=== PATIENT | female | born 1965 | race Caucasian/White ===

== ENCOUNTER 2023-06-05 08:23 | Outpatient (OUT) | payer MEDICARE, BC, SELFPAY ==
--- NOTE | 2023-06-05 | MM_ITS ---
Patient: TARAH ADAME Exam Date: 06/05/2023 : 1965 Gender:F Ordering : DR Darin Gardner . Admission #: [id number] Family : Order #: [id number] CLICK HERE TO VIEW EXAM RADIOLOGY REPORT PROCEDURE: MM TOMOSYNTHESIS SCREENING BI COMPARISON: MG MAMM SCREEN 3D ROMA CAD, 06/01/2022. INDICATIONS: Screening Mammogram Calculator Name NCI Breast Cancer Risk Assessment Tool 5 Year Breast Cancer Risk 1.20% Lifetime Breast Cancer Risk 6.90% Personal Breast Cancer No Personal Ovarian Cancer No Treatments None Family Cancers Aunt-maternal with breast cancer at age 83. LOCATION: [facility] BREAST COMPOSITION: Scattered areas fibroglandular density. FINDINGS: DIAGNOSTIC CATEGORY 2--BENIGN FINDING. NO CHANGE FROM COMPARISON. Scattered benign-appearing calcifications are present. Scattered benign-appearing lymph nodes are present. RIGHT BREAST: No significant suspicious finding. LEFT BREAST: No significant suspicious finding. RECOMMENDATIONS: ROUTINE MAMMOGRAM AND CLINICAL EVALUATION IN 12 MONTHS. PLEASE NOTE: A NORMAL MAMMOGRAM DOES NOT EXCLUDE THE POSSIBILITY OF BREAST CANCER. A CLINICALLY SUSPICIOUS PALPABLE LUMP SHOULD BE BIOPSIED. Dictated by: Joshua Quinn MD on 06/05/2023 at 10:06 Approved by: Joshua Quinn MD on 06/05/2023 at 10:08
== END 2023-06-05 08:24 | disposition home or self-care (01) ==
LOC: MAMMO 08:23
PROVIDERS: PCP Family Medicine; Visit Provider Family Medicine
DX: Z12.31 Encounter for screening mammogram for malignant neoplasm of breast (principal); Z80.3 Family history of malignant neoplasm of breast
CPT/HCPCS: 77063; 77067

== ENCOUNTER 2023-10-29 12:40 | Emergency (ER) | payer MEDICARE, BC, SELFPAY ==
[2023-10-29 12:53] VITALS: BP 158/92; PULSE 88; RESP 18; TEMP 36.7; O2SAT 99; BMI 23.5
--- NOTE | 2023-10-29 13:11 | XR_ITS ---
The [address] [address] Patient Name: TARAH ADAME MRN: [id number] date: 1965 Sex: F Assigned Patient Location: ER Current Patient Location: ER Accession/Order Number: [id number] Exam Date: 10/29/2023 13:30 Report Date: 10/29/2023 14:24 At the request of: SUREKHA SANTOS Procedure: XR hand LT min 3V EXAM: XR hand LT min 3V HISTORY: Pain, fall COMPARISON: None. TECHNIQUE: 3 views of left hand FINDINGS: There is no acute fracture or dislocation. The soft tissues are unremarkable. XR/XR hand LT min 3V IMPRESSION: No acute fracture. Electronically authenticated by: SARATH ROMEO Date: 10/29/2023 14:24
--- NOTE | 2023-10-29 13:11 | XR_ITS ---
The [address] [address] Patient Name: TARAH ADAME MRN: [id number] date: 1965 Sex: F Assigned Patient Location: ER Current Patient Location: ER Accession/Order Number: [id number] Exam Date: 10/29/2023 13:30 Report Date: 10/29/2023 14:23 At the request of: SUREKHA SANTOS Procedure: XR elbow RT min 3V EXAM: XR elbow RT min 3V HISTORY: Pain, fall COMPARISON: None. TECHNIQUE: 2 views of right elbow FINDINGS: There is no acute fracture or dislocation. The soft tissues are unremarkable. 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 XR/XR elbow RT min 3V IMPRESSION: No acute fracture. Electronically authenticated by: SARATH ROMEO Date: 10/29/2023 14:23
--- NOTE | 2023-10-29 13:11 | XR_ITS ---
The [address] [address] Patient Name: TARAH ADAME MRN: [id number] date: 1965 Sex: F Assigned Patient Location: ER Current Patient Location: ER Accession/Order Number: [id number] Exam Date: 10/29/2023 13:30 Report Date: 10/29/2023 14:25 At the request of: SUREKHA SANTOS Procedure: XR shoulder RT min 2V EXAM: XR shoulder RT min 2V HISTORY: Pain, fall COMPARISON: None. TECHNIQUE: 3 views of the right shoulder. FINDINGS: Bones: No acute fracture or aggressive appearing bony lesion. Joints: Normal alignment. No effusion. No significant degenerative findings. Soft tissues: Unremarkable. XR/XR shoulder RT min 2V IMPRESSION: No evidence of fracture. Electronically authenticated by: SARATH ROMEO Date: 10/29/2023 14:25
--- NOTE | 2023-10-29 13:43 | ED_ITS ---
HPI - Extremity Injury (Upper) General Chief Complaint: Extremity Injury, Upper Stated Complaint: UPPER EXTREITY PAIN L HAND Time Seen by Provider: 10/29/23 13:07 Source: patient Mode of arrival: walk-in History of Present Illness HPI narrative: 58-year-old female presents for pain to her left hand, right elbow, and right shoulder. She states she fell about 2 days ago and injured these areas. She does not believe she hit her head. She is right-handed. The pain is moderate and worse when she moves. It is her hand that hurts the most. Related Data Previous Rx's Medication Instructions Recorded cephalexin 500 mg capsule 500 mg PO QID 10 days #40 caps 10/29/23 Allergies Allergy/AdvReac Type Severity Reaction Status Date / Time amoxicillin Allergy Severe Verified 10/29/23 12:58 Review of Systems ROS Narrative A ten point review of systems is negative except as noted above. Exam Narrative Exam Narrative: Nurses note and vital signs reviewed and patient is not hypoxic. General: The patient appears well and in no apparent distress. Patient is resting comfortably on cart. Skin: Warm, dry, no pallor noted. There is no rash noted. Head: Normocephalic, atraumatic Eye: Normal conjunctiva, no drainage Ears, Nose, Mouth, and Throat: oral mucosa is moist. Nares patent. Cardiovascular: Regular Rate and Rhythm Respiratory: Patient is in no distress, no accessory muscle use, lungs are clear to auscultation, no wheezing, rales or rhonchi Back: non-tender GI: Soft and nontender Musculoskeletal: Right shoulder has full range of motion with no bruise or abrasion. The right elbow has abrasions and some mild erythema but no drainage and the elbow has full range of motion. Right wrist and right hand are nontender. She has swelling on the dorsum of her left hand particularly at the base of the third finger. She also has some abrasions and bruises on her arms. Neurological: A&O, normal speech Psychiatric: Cooperative Constitutional Vital Signs, click to edit/add: Last Vital Signs Temp 98.1 F 10/29/23 12:53 Pulse 88 10/29/23 12:53 Resp 18 10/29/23 12:53 BP 158/92 H 10/29/23 12:53 Pulse Ox 99 10/29/23 12:53 O2 Del Method Room Air 10/29/23 12:53 Course Vital Signs Vital signs: Vital Signs Temperature 98.1 F 10/29/23 12:53 Pulse Rate 88 10/29/23 12:53 Respiratory Rate 18 10/29/23 12:53 Blood Pressure 158/92 H 10/29/23 12:53 Pulse Oximetry 99 10/29/23 12:53 Oxygen Delivery Method Room Air 10/29/23 12:53 Temperature 98.1 F 10/29/23 12:53 Pulse Rate 88 10/29/23 12:53 Respiratory Rate 18 10/29/23 12:53 Blood Pressure 158/92 H 10/29/23 12:53 Pulse Oximetry 99 10/29/23 12:53 Oxygen Delivery Method Room Air 10/29/23 12:53 MDM - Extremity Injury (Upper) MDM Narrative Medical decision making narrative: X-rays are all negative per radiologist. She has some erythema at the abrasions of the right elbow and she will be placed on a course of Keflex. Treatment d iagnosis and follow-up were discussed with the patient. Differential Diagnosis Differential diagnosis: Likely other (Fracture, abrasions, cellulitis) Imaging Data Left hand: Radiologist's impression: ITS Impressions Elbow X-Ray 10/29/23 13:11 IMPRESSION: No acute fracture. Electronically authenticated by: SARATH ROMEO Date: 10/29/2023 14:23 Hand X-Ray 10/29/23 13:11 IMPRESSION: No acute fracture. Electronically authenticated by: SARATH ROMEO Date: 10/29/2023 14:24 Shoulder X-Ray 10/29/23 13:11 IMPRESSION: No evidence of fracture. Electronically authenticated by: SARATH ROMEO Date: 10/29/2023 14:25 Discharge Plan Discharge Stand Alone Forms: Portal Instructions Chief Complaint: Extremity Injury, Upper Clinical Impression: Multiple contusions Patient Disposition: Home, Self-Care Time of Disposition Decision: 14:33 Condition: Good Mode of Transportation: Private Vehicle Prescriptions / Home Meds: New cephalexin 500 mg capsule 500 mg PO QID 10 Days Qty: 40 0RF Instructions: Contusion in Adults (ED) Referrals: Darin Gardner MD [Primary Care Provider] - 1 week
[2023-10-29 14:46] VITALS: BP 130/90; PULSE 77; RESP 16; O2SAT 99
== END 2023-10-29 14:50 | disposition home or self-care (01) ==
PROVIDERS: Emergency Provider Emergency Medicine; PCP Family Medicine
DX: T14.8XXA Other injury of unspecified body region, initial encounter (principal); W19.XXXA Unspecified fall, initial encounter
CPT/HCPCS: 73030; 73080; 73130; 99283

== ENCOUNTER 2024-05-09 08:08 | Outpatient (OUT) | payer MEDICARE, SELFPAY ==
--- OUTSIDE RECORDS SUMMARY | 2024-05-09 08:13 | XMS_ITS | CCD ---
Author Organization [facility] Care Team Providers Care Healthcare Economics Consultant Name Role Phone LETY, DR MOSQUEDA Consulting Unavailable OSEIY, DR MOSQUEDA Primary Care Unavailable HOY, DR MOSQUEDA Admitting Unavailable HOY, DR MOSQUEDA Attending Unavailable WEST, DR CARLO Willson Consulting Unavailable OSEIY, DR MOSQUEDA Consulting Unavailable OSEIY, DR MOSQUEDA Primary Care Unavailable HOY, DR MOSQUEDA Admitting Unavailable HOY, DR MOSQUEDA Attending Unavailable ZIEBER, DR GEOFF Bella Consulting Unavailable OSEIY, DR MOSQUEDA Consulting Unavailable OSEIY, DR MOSQUEDA Primary Care Unavailable HOY, DR MOSQUEDA Admitting Unavailable HOY, DR MOSQUEDA Attending Unavailable HOY, DR MOSQUEDA Consulting Unavailable HOY, DR MOSQUEDA Primary Care Unavailable HOY, DR MOSQUEDA Admitting Unavailable HOY, DR MOSQUEDA Attending Unavailable ZIEBER, DR GEOFF Bella Consulting Unavailable Allergies Allergy Classification Reported Allergen(s) Allergy Type Date of Onset Reaction(s) Facility (1 source) Amoxicillin Drug Allergy 08-18-2016 [facility] (1 source) Codeine Drug Allergy 02-17-2016 [facility] (1 source) Morphine Drug Allergy 08-18-2016 [facility] Problems Problem Classification Problem Date Documented Da te Episodic/Chronic Deficiency and other anemia (1 source) Anemia, unspecified; Translations: [ANEMIA UNSPECIFIED] Onset: 06-02-2022 Episodic Diabetes mellitus without complication (1 source) Other abnormal glucose; Translations: [OTHER ABNORMAL GLUCOSE] Onset: 06-02-2022 Episodic Disorders of lipid metabolism (1 source) Hyperlipidemia, unspecified; Translations: [HYPERLIPIDEMIA UNSPECIFIED] Onset: 06-02-2022 Chronic Malaise and fatigue (1 source) Other fatigue; Translations: [OTHER FATIGUE] Onset: 06-02-2022 Episodic Other aftercare (1 source) Other usp (current) drug therapy; Translations: [OTH CUSTODIAN BLOOD BANK CURRENT DRUG THERAPY] Onset: 06-02-2022 Episodic Other screening for suspected conditions (not mental disorders or infectious disease) (4 sources) Encounter for screening mammogram for malignant neoplasm of breast; Translations: [ENC SCR MAMMO MALIG NEOPLASM BREAST] Onset: 06-01-2022 Episodic Residual codes; unclassified (1 source) Family history of malignant neoplasm of breast; Translations: [FAMILY HX MALIG NEOPLASM OF BREAST] Onset: 06-03-2022 Episodic Spondylosis; intervertebral disc disorders; other back problems (4 sources) Spondylosis without myelopathy or radiculopathy, lumbar region; Translations: [SPONDYLS W/O MYELO-/RADICULOP LUMB] Onset: 09-09-2021 Chronic Substance-related disorders (4 sources) Nicotine dependence, cigarettes, uncomplicated; Translations: [NICOTINE DEPEND CIGARETTES UNCOMP] Onset: 06-06-2022 Chronic Results Test Name Value Interpretation Reference Range Facil ity CT LUNG CANCER SCREENINGon 1 CT LUNG CANCER SCREENING EXAMINATION: CT LUNG CANCER SCREENING HISTORY: Tobacco dependence caused by cigarettes COMPARISON: None. TECHNIQUE: Axial, Coronal, and Sagittal images were created without the administration of IV contrast material. Dose reduction techniques were achieved by using automated exposure control and/or adjustment of mA and/or kV according to patient size and/or use of iterative reconstruction technique. FINDINGS: LUNGS: No visible pulmonary disease. PLEURA: No mass, effusion, or pneumothorax. VASCULATURE: No abnormality. GREGORY: No mass or pathologic adenopathy. MEDIASTINUM: No mass or pathologic adenopathy. CARDIAC: No enlargement, pericardial thickening, or significant calcification. AORTA: No aneurysm or dissection. CHEST WALL: No mass or axillary adenopathy BONES: No bone lesion or fracture. LIMITED ABDOMEN: No suspicious findings. Limited images of the upper abdomen. OTHER: Negative. IMPRESSION: 1. Lung-RADS Category 1 Negative. No nodules and definitely benign nodules. Continue annual screening with LDCT in 12 months. Electronically authenticated by: GEOFF ANDRADE Date: 2022-06-06 22:04 Normal [facility] MG MAMM SCREEN 3D ROMA CADon 06-01-2022 MG MAMM SCREEN 3D ROMA CAD Patient: TARAH ADAME Exam Date: 06/01/2022 : 1965 Gender:F Ordering : DR PANDA DAVIDSON . Admission #: [id number] Family : Order #: [id number] CLICK HERE TO VIEW EXAM RADIOLOGY REPORT PROCEDURE: MAMMOGRAM SCREENING 3D BILATERAL CAD COMPARISON: MAMMO ROMA LUIS DIG, 11/04/2010. INDICATIONS: Screening mammography Calculator Name NCI Breast Cancer Risk Assessment Tool 5 Year Breast Cancer Risk 1.10% Lifetime Breast Cancer Risk 7.10% Personal Breast Cancer No Personal Ovarian Cancer No Treatments None Family Cancers Aunt-maternal with breast cancer at age 83. LOCATION: [facility] BREAST COMPOSITION: Scattered areas fibroglandular density. FINDINGS: DIAGNOSTIC CATEGORY 2--BENIGN FINDING: Scattered benign-appearing calcifications are present. Scattered benign-appearing lymph nodes are present. RIGHT BREAST: No significant suspicious finding. Increased number of multiple calcified cysts benign appearing. LEFT BREAST: No significant suspicious finding. RECOMMENDATIONS: ROUTINE MAMMOGRAM AND CLINICAL EVALUATION IN 12 MONTHS. PLEASE NOTE: A NORMAL MAMMOGRAM DOES NOT EXCLUDE THE POSSIBILITY OF BREAST CANCER. A CLINICALLY SUSPICIOUS PALPABLE LUMP SHOULD BE BIOPSIED. Dictated by: Carlo Quinn MD on 06/01/2022 at 09:57 Approved by: Carlo Quinn MD on 06/01/2022 at 09:59 Normal [facility] CBC AUTO DIFFon 05-30-2022 BASO # 0.1 103/ul Normal 0.0-0.1 [facility] Comment on above: Performed By: #### C BC #### [facility] [address] [address] [address] Liang Diana Basophils/100 WBC (Bld) 0.8 % Normal 0.2-2.0 [facility] Comment on above: Performed By: #### C BC #### [facility] [address] [address] [address] Liang Diana EO # 0.3 103/ul Normal 0.0-0.7 [facility] Comment on above: Performed By: #### C BC #### [facility] [address] [address] [address] Liang Diana Eosinophils/100 WBC (Bld) 2.4 % Normal 0.9-7.0 [facility] Comment on above: Performed By: #### C BC #### [facility] [address] [place] [address] Dr. Liang Diana Erythrocyte distribution width (RBC) [Ratio] 13.5 % Normal 11.0-15.0 [facility] Comment on above: Performed By: #### C BC #### [facility] [address] [place] [address] Dr. Liang Diana Hematocrit (Bld) [Volume fraction] 43.1 % Normal 36.0-48.0 [facility] Comment on above: Performed By: #### C BC #### [facility] [address] [place] [address] Dr. Liang Diana Hemoglobin (Bld) [Mass/Vol] 14.3 g/dL Normal 12.0-16.0 [facility] Comment on above: Performed By: #### C BC #### [facility] [address] [place] [address] Dr. Liang Diana IG # 0.14 10e3/ul Critically high 0.00-0.03 [facility] Comment on above: Performed By: #### C BC #### [facility] [address] [place] [address] Dr. Liang Diana IG % 1.2 % Critically high 0.0-0.5 [facility] Comment on above: Performed By: #### C BC #### [facility] [address] [place] [address] Dr. Liang Diana LYMPH # 1.6 103/ul Normal 1.2-3.8 [facility] Comment on above: Performed By: #### C BC #### [facility] [address] [place] [address] Dr. Liang Diana Lymphocytes/100 WBC (Bld) 14.3 % Critically low 20.5-60.0 [facility] Comment on above: Performed By: #### C BC #### [facility] [address] [place] [address] Dr. Liang Diana MANUAL DIFF REQ NO Normal [facility] Comment on above: Performed By: #### C BC #### [facility] [address] [place] [address] Dr. Liang Diana MCH (RBC) [Entitic mass] 32.1 pg Normal 26.7-34.0 [facility] Comment on above: Performed By: #### C BC #### [facility] [address] [place] [address] Dr. Liang Diana MCHC (RBC) [Mass/Vol] 33.2 g/dL Normal 29.9-35.2 [facility] Comment on above: Performed By: #### C BC #### [facility] [address] [address] [address] Liang Diana MCV (RBC) [Entitic vol] 96.6 fL Normal 81.0-99.0 [facility] Comment on above: Performed By: #### C BC #### [facility] [address] [place] [address] Dr. Liang Diana MONO # 1.1 103/ul Critically high 0.3-0.8 [facility] Comment on above: Performed By: #### C BC #### [facility] [address] [place] [address] Dr. Liang Diana Monocytes/100 WBC (Bld) 10.1 % Normal 1.7-12.0 [facility] Comment on above: Performed By: #### C BC #### [facility] [address] [place] [address] Dr. Liang Diana NEUT # 8.0 103/ul Critically high 1.4-6.5 [facility] Comment on above: Performed By: #### C BC #### [facility] [address] [place] [address] Dr. Liang Diana Neutrophils/100 WBC (Bld) 71.2 % Normal 43.0-75.0 [facility] Comment on above: Performed By: #### C BC #### [facility] [address] [place] [address] Dr. Liang Diana Platelet mean volume (Bld) [Entitic vol] 9.0 fL Critically low 9.5-13.5 [facility] Comment on above: Performed By: #### C BC #### [facility] [address] [address] [address] Liang Diana PLT 258 103/ul Normal 150-450 [facility] Comment on above: Performed By: #### C BC #### [facility] [address] [place] [address] Dr. Liang Diana RBC 4.46 106/ul Normal 4.20-5.40 [facility] Comment on above: Performed By: #### C BC #### [facility] [address] [place] [address] Dr. Liang Diana WBC 11.3 103/ul Critically high 4.0-11.0 [facility] Comment on above: Performed By: #### C BC #### [facility] [address] [place] [address] Dr. Liang Diana FREE THYROXINE INDEX T7on FTI 4.48 Normal 1.30-4.50 [facility] Comment on above: Performed By: #### L IPID, TSH, CMP, T7 #### [facility] [address] [place] [address] Dr. Liang Diana T3U 37.0 % Normal 30.0-39.0 [facility] Comment on above: Performed By: #### L IPID, TSH, CMP, T7 #### [facility] [address] [place] [address] Dr. Liang Diana T4 [Mass/Vol] 12.10 ug/dL Normal 4.80-13.90 [facility] Comment on above: Performed By: #### L IPID, TSH, CMP, T7 #### [facility] [address] [place] [address] Dr. Liang Diana GLYCOHEMOGLOBIN A1Con 2021 ADA RECOMMENDATION SEE BELOW Normal [facility] Comment on above: Result Comment: ADA RECOMMENDED LIMIT 4.0 - 6.0 ADA THERAPEUTIC TARGET < 7.0 ACTION SUGGESTED > 7.0 Performed By: #### A 1C #### [facility] [address] [place] [address] Dr. Liang Diana Glucose [Mass/Vol] 108 mg/dL Normal [facility] Comment on above: Performed By: #### A 1C #### [facility] [address] [address] [address] Liang Diana HbA1c (Bld) [Mass fraction] 5.4 % Normal 4.5-6.2 [facility] Comment on above: Performed By: #### A 1C #### [facility] [address] [address] [address] Liang Diana LIPID PROFILEon 05-30-2022 CHOL-HDL RATIO NORM SEE BELOW Normal [facility] Comment on above: Result Comment: 3.3 - 4.4 LOW RISK 4.4 - 7.1 AVERAGE RISK 7.1 - 11.0 MODERATE RISK >11.0 HIGH RISK Performed By: #### L IPID, TSH, CMP, T7 #### [facility] [address] [address] [address] Liang Diana Cholesterol [Mass/Vol] 219 mg/dL Critically high <=200 [facility] Comment on above: Performed By: #### L IPID, TSH, CMP, T7 #### [facility] [address] [address] [address] Liang Diana Cholesterol in HDL [Mass/Vol] 69 mg/dL Critically high 40-60 [facility] Comment on above: Performed By: #### L IPID, TSH, CMP, T7 #### [facility] [address] [address] [address] Liang Diana Cholesterol in LDL [Mass/Vol] 134.4 mg/dL Normal [facility] Comment on above: Performed By: #### L IPID, TSH, CMP, T7 #### [facility] [address] [address] [address] Liang Diana Cholesterol.total/Cho lesterol in HDL [Mass ratio] 3.2 {ratio} Normal [facility] Comment on above: Performed By: #### L IPID, TSH, CMP, T7 #### [facility] [address] [address] [address] Liang Diana HDL NORMAL > or = 60 mg/dl - LOW CARDIOVASCULAR RISK <40 mg/dl - HIGH CARDIOVASCULAR RISK Normal [facility] Comment on above: Performed By: #### L IPID, TSH, CMP, T7 #### [facility] [address] [address] [address] Liang Diana LDL CALC NORMAL SEE BELOW Normal [facility] Comment on above: Result Comment: <100 mg/dl OPTIMAL 100 - 129 mg/dl NEAR OR ABOVE OPTIMAL 130 - 159 mg/dl BORDERLINE HIGH 160 - 189 mg/dl HIGH >190 mg/dl VERY HIGH Performed By: #### L IPID, TSH, CMP, T7 #### [facility] [address] [address] [address] Liang Diana Triglyceride [Mass/Vol] 78 mg/dL Normal <=150 [facility] Comment on above: Performed By: #### L IPID, TSH, CMP, T7 #### [facility] [address] [address] [address] Liang Diana VLDL CALC 15.6 mg/dL Normal [facility] Comment on above: Performed By: #### L IPID, TSH, CMP, T7 #### [facility] [address] [address] [address] Liang Diana PROF 14(COMP METB)on 022 Albumin [Mass/Vol] 4.0 g/dL Normal 3.4-5.0 [facility] Comment on above: Performed By: #### L IPID, TSH, CMP, T7 #### [facility] [address] [address] [address] Liang Diana Albumin/Globulin [Mass ratio] 1.2 {ratio} Normal [facility] Comment on above: Performed By: #### L IPID, TSH, CMP, T7 #### [facility] [address] [address] [address] Liang Diana ALP [Catalytic activity/Vol] 66 U/L Normal 46-116 [facility] Comment on above: Performed By: #### L IPID, TSH, CMP, T7 #### [facility] [address] [address] [address] Liang Diana ALT [Catalytic activity/Vol] 21 U/L Normal 14-59 [facility] Comment on above: Performed By: #### L IPID, TSH, CMP, T7 #### [facility] [address] [address] [address] Liang Diana Anion gap [Moles/Vol] 11.1 mmol/L Normal [facility] Comment on above: Performed By: #### L IPID, TSH, CMP, T7 #### [facility] [address] [address] [address] Liang Diana AST [Catalytic activity/Vol] 18 U/L Normal 15-37 [facility] Comment on above: Performed By: #### L IPID, TSH, CMP, T7 #### [facility] [address] [address] [address] Liang Diana Bilirubin [Mass/Vol] 0.6 mg/dL Normal 0.2-1.0 [facility] Comment on above: Performed By: #### L IPID, TSH, CMP, T7 #### [facility] [address] [place] [address] Dr. Liang Diana Calcium [Mass/Vol] 9.2 mg/dL Normal 8.5-10.1 [facility] Comment on above: Performed By: #### L IPID, TSH, CMP, T7 #### [facility] [address] [address] [address] Liang Diana Chloride [Moles/Vol] 104 mmol/L Normal 98-107 [facility] Comment on above: Performed By: #### L IPID, TSH, CMP, T7 #### [facility] [address] [address] [address] Liang Diana CO2 [Moles/Vol] 29.5 mmol/L Normal 21.0-32.0 [facility] Comment on above: Performed By: #### L IPID, TSH, CMP, T7 #### [facility] [address] [place] [address] Dr. Liang Diana Creatinine [Mass/Vol] 0.68 mg/dL Normal 0.55-1.02 [facility] Comment on above: Performed By: #### L IPID, TSH, CMP, T7 #### [facility] [address] [address] [address] Liang Diana EGFR-AF TURKS AND CAICOS ISLANDER >60 Normal >=60 [facility] Comment on above: Performed By: #### L IPID, TSH, CMP, T7 #### [facility] [address] [address] [address] Liang Diana EGFR-NON AF TURKS AND CAICOS ISLANDER >60 Normal >=60 [facility] Comment on above: Performed By: #### L IPID, TSH, CMP, T7 #### [facility] [address] [address] [address] Liang Diana Globulin (S) [Mass/Vol] 3.3 g/dL Normal [facility] Comment on above: Performed By: #### L IPID, TSH, CMP, T7 #### [facility] [address] [address] [address] Liang Diana Glucose [Mass/Vol] 96 mg/dL Normal 74-106 [facility] Comment on above: Performed By: #### L IPID, TSH, CMP, T7 #### [facility] [address] [address] [address] Liang Diana Potassium [Moles/Vol] 4.6 mmol/L Normal 3.5-5.1 [facility] Comment on above: Performed By: #### L IPID, TSH, CMP, T7 #### [facility] [address] [address] [address] Liang Diana Protein [Mass/Vol] 7.3 g/dL Normal 6.4-8.2 [facility] Comment on above: Performed By: #### L IPID, TSH, CMP, T7 #### [facility] [address] [address] [address] Liang Diana Sodium [Moles/Vol] 140 mmol/L Normal 136-145 [facility] Comment on above: Performed By: #### L IPID, TSH, CMP, T7 #### [facility] [address] [address] [address] Liang Diana Urea nitrogen [Mass/Vol] 7.0 mg/dL Normal 7.0-18.0 [facility] Comment on above: Performed By: #### L IPID, TSH, CMP, T7 #### [facility] [address] [address] [address] Liang Diana Urea nitrogen/Creatinine [Mass ratio] 10.3 mg/mg Normal [facility] Comment on above: Performed By: #### L IPID, TSH, CMP, T7 #### [facility] [address] [address] [address] Laing Diana TSHon 05-30-2022 TSH 0.872 uIU/mL Normal 0.358-3.740 [facility] Comment on above: Performed By: #### L IPID, TSH, CMP, T7 #### [facility] [address] [address] [address] Liang Diana XR LSPINE MIN 4 VIEWSon 08-22 XR LSPINE MIN 4 VIEWS EXAMINATION: XR LSPINE MIN 4 VIEWS HISTORY: Spondylosis without myelopathy COMPARISON: XR lumbar spine 10/03/2020 FINDINGS: BONES: 10 mm retrolisthesis of L2 on 3 (previously 3 mm). Posterior mechanical stabilization of L3-4-5 via bilateral pedicle screws and rods without evidence of hardware fracture. Posterior decompression L3 and L4 Mild inferior endplate compression fracture of L2 versus chronic degenerative endplate changes. Moderate degenerative facet arthropathy L4-5, L5-S1. Moderate levoscoliosis of the lumbar spine. DISC SPACES: Marked narrowing L2-3 through L4-5. Mild narrowing L5-S1. PARASPINOUS: Negative. No paraspinous abnormality is seen. OTHER: Negative. IMPRESSION: 1. Since one year ago there is been interval progression of retrograde listhesis of L2 on 3, now grade 2, likely causing marked central canal and moderate-marked foramen narrowing. L2 progression of the inferior endplate degenerative changes versus mild compression fracture. 2. Prior surgical changes at L3-L5 without evidence of hardware failure or change in alignment. 3. Stable multilevel marked degenerative disc disease and moderate levoscoliosis. Electronically authenticated by: GOEFF ANDRADE Date: 2021-09-09 11:23 Normal [facility] Encounters Encounter Date Encounter Type Care Provider Facility Start: 06-06-2022 End: 10-18-[address] PANDA DAVIDSON Facility[facility] Start: 06-02-2022 Encounter for genera l adult medical examination without abnormal findings DR PANDA DAVIDSON [facility] Start: 06-01-2022 End: 06-02-[address] PANDA DAVIDSON Facility[facility] Start: 05-30-2022 End: 05-31-[address] PANDA DAVIDSON Facility[facility] Start: 05-30-2022 End: 05-31-2022 Encounter for general adult medical examination without abnormal findings DR PANDA DAVIDSON Facility[facility] Start: 09-09-2021 End: 09-10-[address] PANDA DAVIDSON Facility[facility] Payers Date Payer Category Payer Unknown [id number] 2.16.84 [id number] 1965 Unknown [id number] 2.16.84 [id number] 1965 Unknown [id number] 2.16.84 [id number] 1965 Unknown [id number] 2.16.84 [id number] 1959 Medicare [id number] 1959 Unknown [id number] Summary Purpose Family History No Family History Records Found Advance Directives No Advanced Directives Records Found Additional Source Comments INFORMATION SOURCE (unrecogn ized section and content) DATE CREATED AUTHOR 06/22/2022 [facility] FOR RECORDS PERTAINING TO PATIENTS WHO ARE OR HAVE BEEN ENROLLED IN A CHEMICAL DEPENDENCY/SUBSTANCEABUSE PROGRAM, SOME INFORMATION MAY BE OMITTED. This clinical summary was aggregated from multiple sources. Caution should be exercised in using it in the provision of clinical care. This summary normalizes information from multiple sources, and as a consequence, information in this document may materially change the coding, format and clinical context of patient data. In addition, data may be omitted in some cases. CLINICAL DECISIONS SHOULD BE BASED ON THE PRIMARY CLINICAL RECORDS. [facility] [employer] [facility]. provides no warranty or guarantee of the accuracy or completeness of information in this document.
[2024-05-09 08:44] LABS: Basophils Absolute Auto 0.1 10^3/uL (0.0-0.1); Basophils Percent Auto 0.4 % (0.2-2.0); Eosinophils Absolute Auto 0.1 10^3/uL (0.0-0.7); Eosinophils Percent Auto 0.8 % (0.9-7.0); Estimated Average Glucose 108 mg/dL; Glycohemoglobin A1C 5.4 % (4.5-6.2); Hematocrit 41.7 % (36.0-48.0); Hemoglobin 13.8 g/dL (12.0-16.0); Immature Granulocytes Abs Auto 0.14 10^3/uL (0.00-0.03); Immature Granulocytes Pct Auto 1.2 % (0.0-0.5); Lymphocytes Absolute Auto 1.2 10^3/uL (1.2-3.8); Mean Corpuscular HGB Conc 33.1 g/dL (29.9-35.2); Mean Corpuscular Hemoglobin 31.9 pg (26.7-34.0); Mean Corpuscular Volume 96.3 fL (81.0-99.0); Mean Platelet Volume 9.2 fL (9.5-13.5); Monocytes Absolute Auto 0.8 10^3/uL (0.3-0.8); Monocytes Percent Auto 7.4 % (1.7-12.0); Neutrophils Absolute Auto 8.9 10^3/uL (1.4-6.5); Neutrophils Percent Auto 79.2 % (43.0-75.0); Platelet Count 271 10^3/uL (150-450); Red Blood Count 4.33 10^6/uL (4.20-5.40); Red Cell Distribution Width 13.8 % (11.0-15.0); White Blood Count 11.3 10^3/uL (4.0-11.0)
[2024-05-09 09:10] LABS: Alanine Aminotransferase 27 U/L (14-59); Albumin Globulin Ratio 1.2; Albumin Level 3.7 g/dL (3.4-5.0); Alkaline Phosphatase 67 U/L (46-116); Anion Gap 9.1; Aspartate Amino Transferase 20 U/L (15-37); Bilirubin Total 0.5 mg/dL (0.2-1.0); Calcium 8.9 mg/dL (8.5-10.1); Carbon Dioxide 30.9 mmol/L (21.0-32.0); Chloride 105 mmol/L (98-107); Chol HDL Ratio 2.7; Cholesterol 232 mg/dL (<=200); Estimated GFR (African America >60 (>=60); Estimated GFR (Non-African Ame >60 (>=60); Free T3 1.82 pg/mL (2.18-3.98); Glucose 93 mg/dL (74-106); HDL Cholesterol 85 mg/dL (40-60); Sodium 141 mmol/L (136-145); Thyroid Stimulating Hormone 0.487 uIU/mL (0.358-3.740); Total Protein 6.7 g/dL (6.4-8.2); Triglycerides 56 mg/dL (<=150); VLDL CHOLESTEROL 11.2 mg/dL
== END 2024-05-09 08:09 | disposition home or self-care (01) ==
LOC: LAB 08:09
PROVIDERS: PCP Family Medicine; Visit Provider Family Medicine
DX: Z00.00 Encounter for general adult medical examination without abnormal findings (principal); E78.5 Hyperlipidemia, unspecified; R73.09 Other abnormal glucose; D64.9 Anemia, unspecified; E03.9 Hypothyroidism, unspecified
CPT/HCPCS: 36415; 80053; 80061; 83036; 83540; 84436; 84443; 84481; 85025

== ENCOUNTER 2024-05-16 08:16 | Outpatient (OUT) | payer MEDICARE, SELFPAY ==
--- NOTE | 2024-05-16 08:23 | CT_ITS ---
[address] [address] Patient Name: TARAH ADAME MRN: [id number] date: 1965 Sex: F Assigned Patient Location: CT Current Patient Location: Accession/Order Number: [id number] Exam Date: 05/16/2024 08:25 Report Date: 05/17/2024 06:55 At the request of: PANDA DAVIDSON Procedure: CT lung screening low-dose EXAMINATION: CT lung screening low-dose HISTORY: Cigarette Smoker, Chronic Pulmonary Obstructive Disease COMPARISON: CT lung cancer screening 06/06/2022 TECHNIQUE: Axial, Coronal, and Sagittal images were created without the administration of IV contrast material. Dose reduction techniques were achieved by using automated exposure control and/or adjustment of mA and/or kV according to patient size and/or use of iterative reconstruction technique. FINDINGS: LUNGS: No visible pulmonary disease. PLEURA: No mass, effusion, or pneumothorax. VASCULATURE: No abnormality. GREGORY: No mass or pathologic adenopathy. MEDIASTINUM: No mass or pathologic adenopathy. CARDIAC: No enlargement, pericardial thickening, or pericardial effusion. Coronary Artery calcifications: AORTA: No aneurysm or dissection. CHEST WALL: No mass or axillary adenopathy BONES: Mechanical fusion of lower cervical spine. No bone lesion or fracture. LIMITED ABDOMEN: No suspicious findings. Limited images of the upper abdomen. OTHER: Negative. CT/CT lung screening low-dose IMPRESSION: 1. Lung-RADS Category 1 Negative. No nodules and definitely benign nodules. Continue annual screening with LDCT in 12 months. Electronically authenticated by: GEOFF ANDRADE Date: 05/17/2024 06:55
--- OUTSIDE RECORDS SUMMARY | 2024-05-16 08:31 | XMS_ITS | CCD ---
Author Organization [facility] Care Team Providers Care Client Service Associate Name Role Phone LETY, DR MOSQUEDA Consulting Unavailable OSEIY, DR MOSQUEDA Primary Care Unavailable HOY, DR MOSQUEDA Admitting Unavailable HOY, DR MOSQUEDA Attending Unavailable WEST, DR CARLO iWllson Consulting Unavailable OSEIY, DR MOSQUEDA Consulting Unavailable [...] (1 source) Amoxicillin Drug Allergy 08-18-2016 [facility] Repository (1 source) Codeine Drug Allergy 02-17-2016 [facility] Rep[facility] (1 source) Morphine Drug Allergy 08-18-2016 [facility] Repository Problems Problem Classification Problem Date Documented [...] 06-02-2022 Episodic Other aftercare (1 source) Other assisted (current) drug therapy; 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 Admission #: [id number] Family : Order #: [id number] CLICK HERE TO VIEW EXAM RADIOLOGY REPORT PROCEDURE: MAMMOGRAM SCREENING 3D BILATERAL CAD COMPARISON: MAMMO ROMA LUIS DIG, 11/04/2010. INDICATIONS: Screening mammography Calculator Name NCI Breast Cancer Risk Assessment Tool 5 Year Breast Cancer Risk 1.10% Lifetime Breast Cancer Risk 7.10% Personal Breast Cancer No Personal Ovarian Cancer No Treatments None Family Cancers Aunt-maternal with breast cancer at age 83. LOCATION: [facility] BREAST COMPOSITION: Scattered areas fibroglandular density. FINDINGS: [...] MD on 06/01/2022 at 09:59 Normal [facility] CBC AUTO DIFFon 05-30-2022 BASO # 0.1 103/ul Normal 0.0-0.1 [facility] Comment on above: Performed By: #### C BC #### [facility] [address] [address] [address] iLang Diana Basophils/100 WBC (Bld) 0.8 % Normal 0.2-2.0 [facility] Comment on above: Performed By: #### C BC #### [facility] [address] [address] [address] Liang Diana EO # 0.3 103/ul Normal 0.0-0.7 [facility] Comment on above: Performed By: #### C BC #### [facility] [address] [address] [address] Liang Diana Eosinophils/100 WBC (Bld) 2.4 % Normal 0.9-7.0 [facility] Comment on above: Performed By: #### C BC #### [facility] [address] [place] [address] Dr. Liang Diana Erythrocyte distribution width (RBC) [Ratio] 13.5 % Normal 11.0-15.0 [facility] Comment on above: Performed By: #### C BC #### [facility] [address] [place] [address] Dr. Liang Diana Hematocrit (Bld) [Volume fraction] 43.1 % Normal 36.0-48.0 [facility] Comment on above: Performed By: #### C BC #### [facility] [address] [place] [address] Dr. Liang iDana Hemoglobin (Bld) [Mass/Vol] 14.3 g/dL Normal 12.0-16.0 [facility] Comment on above: Performed By: #### C BC #### [facility] [address] [place] [address] Dr. Liang Diana IG # 0.14 10e3/ul Critically high 0.00-0.03 [facility] Comment on above: Performed By: #### C BC #### [facility] [address] [place] [address] Dr. Liang Diana IG % 1.2 % Critically high 0.0-0.5 [facility] Comment on above: Performed By: #### C BC #### [facility] [address] [place] [address] Dr. Liang Diana LYMPH # 1.6 103/ul Normal 1.2-3.8 [facility] Comment on above: Performed By: #### C BC #### [facility] [address] [place] [address] Dr. Liang Diana Lymphocytes/100 WBC (Bld) 14.3 % Critically low 20.5-60.0 [facility] Comment on above: Performed By: #### C BC #### [facility] [address] [place] [address] Dr. Liang Diana MANUAL DIFF REQ NO Normal [facility] Comment on above: Performed By: #### C BC #### [facility] [address] [place] [address] Dr. Liang Diana MCH (RBC) [Entitic mass] 32.1 pg Normal 26.7-34.0 [facility] Comment on above: Performed By: #### C BC #### [facility] [address] [place] [address] Dr. Liang Diana MCHC (RBC) [Mass/Vol] 33.2 g/dL Normal 29.9-35.2 [facility] Comment on above: Performed By: #### C BC #### [facility] [address] [address] [address] Liang Diana MCV (RBC) [Entitic vol] 96.6 fL Normal 81.0-99.0 [facility] Comment on above: Performed By: #### C BC #### [facility] [address] [place] [address] Dr. Liang Diana MONO # 1.1 103/ul Critically high 0.3-0.8 [facility] Comment on above: Performed By: #### C BC #### [facility] [address] [place] [address] Dr. Liang Diana Monocytes/100 WBC (Bld) 10.1 % Normal 1.7-12.0 [facility] Comment on above: Performed By: #### C BC #### [facility] [address] [place] [address] Dr. Liang Diana NEUT # 8.0 103/ul Critically high 1.4-6.5 [facility] Comment on above: Performed By: #### C BC #### [facility] [address] [place] [address] Dr. Liang Diana Neutrophils/100 WBC (Bld) 71.2 % Normal 43.0-75.0 [facility] Comment on above: Performed By: #### C BC #### [facility] [address] [place] [address] Dr. Liang Diana Platelet mean volume (Bld) [Entitic vol] 9.0 fL Critically low 9.5-13.5 [facility] Comment on above: Performed By: #### C BC #### [facility] [address] [address] [address] Liang Diana PLT 258 103/ul Normal 150-450 [facility] Comment on above: Performed By: #### C BC #### [facility] [address] [place] [address] Dr. Liang Diana RBC 4.46 106/ul Normal 4.20-5.40 [facility] Comment on above: Performed By: #### C BC #### [facility] [address] [place] [address] Dr. Liang Diana WBC 11.3 103/ul Critically high 4.0-11.0 [facility] Comment on above: Performed By: #### C BC #### [facility] [address] [place] [address] Dr. Liang Diana FREE THYROXINE INDEX T7on FTI 4.48 Normal 1.30-4.50 [facility] Comment on above: Performed By: #### L IPID, TSH, CMP, T7 #### [facility] [address] [place] [address] Dr. Liang Diana T3U 37.0 % Normal 30.0-39.0 [facility] Comment on above: Performed By: #### L IPID, TSH, CMP, T7 #### [facility] [address] [place] [address] Dr. Liang Diana T4 [Mass/Vol] 12.10 ug/dL Normal 4.80-13.90 [facility] Comment on above: Performed By: #### L IPID, TSH, CMP, T7 #### [facility] [address] [place] [address] Dr. Liang Diaan GLYCOHEMOGLOBIN A1Con 2021 ADA RECOMMENDATION SEE BELOW Normal [facility] Comment on above: Result Comment: ADA RECOMMENDED LIMIT 4.0 - 6.0 ADA THERAPEUTIC TARGET < 7.0 ACTION SUGGESTED > 7.0 Performed By: #### A 1C #### [facility] [address] [place] [address] Dr. Liang Diana Glucose [Mass/Vol] 108 mg/dL Normal [facility] Comment on above: Performed By: #### A 1C #### [facility] [address] [address] [address] Liang Diana HbA1c (Bld) [Mass fraction] 5.4 % Normal 4.5-6.2 [facility] Comment on above: Performed By: #### A 1C #### [facility] [address] [address] [address] Liang Diana LIPID PROFILEon 05-30-2022 CHOL-HDL RATIO NORM SEE BELOW Normal [facility] Comment on above: Result Comment: 3.3 - 4.4 LOW RISK 4.4 - 7.1 AVERAGE RISK 7.1 - 11.0 MODERATE RISK >11.0 HIGH RISK Performed By: #### L IPID, TSH, CMP, T7 #### [facility] [address] [address] [address] Liang Diana Cholesterol [Mass/Vol] 219 mg/dL Critically high <=200 [facility] Comment on above: Performed By: #### L IPID, TSH, CMP, T7 #### [facility] [address] [address] [address] Liang Diana Cholesterol in HDL [Mass/Vol] 69 mg/dL Critically high 40-60 [facility] Comment on above: Performed By: #### L IPID, TSH, CMP, T7 #### [facility] [address] [address] [address] Liang Diana Cholesterol in LDL [Mass/Vol] 134.4 mg/dL Normal [facility] Comment on above: Performed By: #### L IPID, TSH, CMP, T7 #### [facility] [address] [address] [address] Liang Diana Cholesterol.total/Cho lesterol in HDL [Mass ratio] 3.2 {ratio} Normal [facility] Comment on above: Performed By: #### L IPID, TSH, CMP, T7 #### [facility] [address] [address] [address] Liang Diana HDL NORMAL > or = 60 mg/dl - LOW CARDIOVASCULAR RISK <40 mg/dl - HIGH CARDIOVASCULAR RISK Normal [facility] Comment on above: Performed By: #### L IPID, TSH, CMP, T7 #### [facility] [address] [address] [address] Liang Diana LDL CALC NORMAL SEE BELOW Normal [facility] Comment on above: Result Comment: <100 mg/dl OPTIMAL 100 - 129 mg/dl NEAR OR ABOVE OPTIMAL 130 - 159 mg/dl BORDERLINE HIGH 160 - 189 mg/dl HIGH >190 mg/dl VERY HIGH Performed By: #### L IPID, TSH, CMP, T7 #### [facility] [address] [address] [address] Liang Diana Triglyceride [Mass/Vol] 78 mg/dL Normal <=150 [facility] Comment on above: Performed By: #### L IPID, TSH, CMP, T7 #### [facility] [address] [address] [address] Liang Diana VLDL CALC 15.6 mg/dL Normal [facility] Comment on above: Performed By: #### L IPID, TSH, CMP, T7 #### [facility] [address] [address] [address] Liang Diana PROF 14(COMP METB)on 022 Albumin [Mass/Vol] 4.0 g/dL Normal 3.4-5.0 [facility] Comment on above: Performed By: #### L IPID, TSH, CMP, T7 #### [facility] [address] [address] [address] Liang Diana Albumin/Globulin [Mass ratio] 1.2 {ratio} Normal [facility] Comment on above: Performed By: #### L IPID, TSH, CMP, T7 #### [facility] [address] [address] [address] Liang Diana ALP [Catalytic activity/Vol] 66 U/L Normal 46-116 [facility] Comment on above: Performed By: #### L IPID, TSH, CMP, T7 #### [facility] [address] [address] [address] Liang Diana ALT [Catalytic activity/Vol] 21 U/L Normal 14-59 [facility] Comment on above: Performed By: #### L IPID, TSH, CMP, T7 #### [facility] [address] [address] [address] Liang Diana Anion gap [Moles/Vol] 11.1 mmol/L Normal [facility] Comment on above: Performed By: #### L IPID, TSH, CMP, T7 #### [facility] [address] [address] [address] Liang Diana AST [Catalytic activity/Vol] 18 U/L Normal 15-37 [facility] Comment on above: Performed By: #### L IPID, TSH, CMP, T7 #### [facility] [address] [address] [address] Liang Diana Bilirubin [Mass/Vol] 0.6 mg/dL Normal 0.2-1.0 [facility] Comment on above: Performed By: #### L IPID, TSH, CMP, T7 #### [facility] [address] [place] [address] Dr. Liang Diana Calcium [Mass/Vol] 9.2 mg/dL Normal 8.5-10.1 [facility] Comment on above: Performed By: #### L IPID, TSH, CMP, T7 #### [facility] [address] [address] [address] Liang Diana Chloride [Moles/Vol] 104 mmol/L Normal 98-107 [facility] Comment on above: Performed By: #### L IPID, TSH, CMP, T7 #### [facility] [address] [address] [address] Liang Diana CO2 [Moles/Vol] 29.5 mmol/L Normal 21.0-32.0 [facility] Comment on above: Performed By: #### L IPID, TSH, CMP, T7 #### [facility] [address] [place] [address] Dr. Liang Diana Creatinine [Mass/Vol] 0.68 mg/dL Normal 0.55-1.02 [facility] Comment on above: Performed By: #### L IPID, TSH, CMP, T7 #### [facility] [address] [address] [address] Liang Diana EGFR-AF FAROESE >60 Normal >=60 [facility] Comment on above: Performed By: #### L IPID, TSH, CMP, T7 #### [facility] [address] [address] [address] Liang Diana EGFR-NON AF FAROESE >60 Normal >=60 [facility] Comment on above: Performed By: #### L IPID, TSH, CMP, T7 #### [facility] [address] [address] [address] Liang Diana Globulin (S) [Mass/Vol] 3.3 g/dL Normal [facility] Comment on above: Performed By: #### L IPID, TSH, CMP, T7 #### [facility] [address] [address] [address] Liang Diana Glucose [Mass/Vol] 96 mg/dL Normal 74-106 [facility] Comment on above: Performed By: #### L IPID, TSH, CMP, T7 #### [facility] [address] [address] [address] Liang Diana Potassium [Moles/Vol] 4.6 mmol/L Normal 3.5-5.1 [facility] Comment on above: Performed By: #### L IPID, TSH, CMP, T7 #### [facility] [address] [address] [address] Liang Diana Protein [Mass/Vol] 7.3 g/dL Normal 6.4-8.2 [facility] Comment on above: Performed By: #### L IPID, TSH, CMP, T7 #### [facility] [address] [address] [address] Liang Diana Sodium [Moles/Vol] 140 mmol/L Normal 136-145 [facility] Comment on above: Performed By: #### L IPID, TSH, CMP, T7 #### [facility] [address] [address] [address] Liang Diana Urea nitrogen [Mass/Vol] 7.0 mg/dL Normal 7.0-18.0 [facility] Comment on above: Performed By: #### L IPID, TSH, CMP, T7 #### [facility] [address] [address] [address] Liang Diana Urea nitrogen/Creatinine [Mass ratio] 10.3 mg/mg Normal [facility] Comment on above: Performed By: #### L IPID, TSH, CMP, T7 #### [facility] [address] [address] [address] Liang Diana TSHon 05-30-2022 TSH 0.872 uIU/mL Normal 0.358-3.740 [facility] Comment on above: Performed By: #### L IPID, TSH, CMP, T7 #### [facility] [address] [address] [address] Liang Diana XR LSPINE MIN 4 [...] disease and moderate levoscoliosis. Electronically authenticated by: GEOFF ANDRADE Date: 2021-09-09 11:23 Normal [facility] Encounters Encounter Date Encounter Type Care Provider Facility Start: 06-06-2022 End: 10-18-[address] PANDA DAVIDSON Facility:[facility] Start: 06-02-2022 Encounter for genera l adult medical examination without abnormal findings DR PANDA DAVIDSON [facility] Start: 06-01-2022 End: 06-02-[address] PANDA DAVIDSON Facility:[facility] Start: 05-30-2022 End: 05-31-[address] PANDA DAVIDSON Facility:[facility] Start: 05-30-2022 End: 05-31-2022 Encounter for general adult medical examination without abnormal findings DR PANDA DAVIDSON Facility:[facility] Start: 09-09-2021 End: 09-10-[address] PANDA DAVIDSON Facility:[facility] Payers Date Payer Category Payer Unknown [id number] [id number] 1965 Unknown [id number] 2.16.84 [id number] 1965 Unknown [id number] [id number] 1965 Unknown [id number] [id number] 1959 Medicare [id number] 1959 Unknown [id number] Summary Purpose Family History No Family History Records Found Advance Directives No Advanced Directives Records Found Additional Source Comments INFORMATION SOURCE (unrecogn ized section and content) DATE CREATED AUTHOR 06/22/2022 [facility] FOR RECORDS PERTAINING TO PATIENTS WHO ARE [...] BE BASED ON THE PRIMARY CLINICAL RECORDS. [facility] provides no warranty or guarantee of the accuracy or completeness of information in this document.
== END 2024-05-16 08:17 | disposition home or self-care (01) ==
LOC: CT 08:18
PROVIDERS: PCP Family Medicine; Visit Provider Family Medicine
DX: J44.9 Chronic obstructive pulmonary disease, unspecified (principal); F17.210 Nicotine dependence, cigarettes, uncomplicated
CPT/HCPCS: 71271

== ENCOUNTER 2024-06-07 08:48 | Outpatient (OUT) | payer MEDICARE, SELFPAY ==
--- OUTSIDE RECORDS SUMMARY | 2024-06-07 08:54 | XMS_ITS | CCD ---
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 Admission #: [id number] Family : Order #: [id number] CLICK HERE TO VIEW EXAM RADIOLOGY REPORT PROCEDURE: MAMMOGRAM SCREENING 3D BILATERAL CAD COMPARISON: MAMMO ROMA LUIS DIG, 11/04/2010. INDICATIONS: Screening mammography Calculator Name NCI Breast Cancer Risk Assessment Tool 5 Year Breast Cancer Risk 1.10% Lifetime Breast Cancer Risk 7.10% Personal Breast Cancer No Personal Ovarian Cancer No Treatments None Family Cancers Aunt-maternal with breast cancer at age 83. LOCATION: [facility] BREAST COMPOSITION: Scattered areas fibroglandular density. FINDINGS: [...] MD on 06/01/2022 at 09:59 Normal [facility] CBC AUTO DIFFon 05-30-2022 BASO # 0.1 103/ul Normal 0.0-0.1 [facility] Comment on above: Performed By: #### C BC #### [facility] [address] [address] [address] Liang Diana Basophils/100 WBC (Bld) 0.8 % Normal 0.2-2.0 [facility] Comment on above: Performed By: #### C BC #### [facility] [address] [address] [address] Liang Diana EO # 0.3 103/ul Normal 0.0-0.7 [facility] Comment on above: Performed By: #### C BC #### [facility] [address] [address] [address] Liang Diana Eosinophils/100 WBC (Bld) 2.4 % Normal 0.9-7.0 [facility] Comment on above: Performed By: #### C BC #### [facility] [address] [place] [address] Dr. Liang Diana Erythrocyte distribution width (RBC) [Ratio] 13.5 % Normal 11.0-15.0 [facility] Comment on above: Performed By: #### C BC #### [facility] [address] [place] [address] Dr. Liang Diana Hematocrit (Bld) [Volume fraction] 43.1 % Normal 36.0-48.0 [facility] Comment on above: Performed By: #### C BC #### [facility] [address] [place] [address] Dr. Liang Diana Hemoglobin (Bld) [Mass/Vol] 14.3 g/dL Normal 12.0-16.0 [facility] Comment on above: Performed By: #### C BC #### [facility] [address] [place] [address] Dr. Liang Diana IG # 0.14 10e3/ul Critically high 0.00-0.03 [facility] Comment on above: Performed By: #### C BC #### [facility] [address] [place] [address] Dr. Liang Diana IG % 1.2 % Critically high 0.0-0.5 [facility] Comment on above: Performed By: #### C BC #### [facility] [address] [place] [address] Dr. Liang Diana LYMPH # 1.6 103/ul Normal 1.2-3.8 [facility] Comment on above: Performed By: #### C BC #### [facility] [address] [place] [address] Dr. Liang Diana Lymphocytes/100 WBC (Bld) 14.3 % Critically low 20.5-60.0 [facility] Comment on above: Performed By: #### C BC #### [facility] [address] [place] [address] Dr. Liang Diana MANUAL DIFF REQ NO Normal [facility] Comment on above: Performed By: #### C BC #### [facility] [address] [place] [address] Dr. Liang Diana MCH (RBC) [Entitic mass] 32.1 pg Normal 26.7-34.0 [facility] Comment on above: Performed By: #### C BC #### [facility] [address] [place] [address] Dr. Liang Diana MCHC (RBC) [Mass/Vol] 33.2 g/dL Normal 29.9-35.2 [facility] Comment on above: Performed By: #### C BC #### [facility] [address] [address] [address] Liang Diana MCV (RBC) [Entitic vol] 96.6 fL Normal 81.0-99.0 [facility] Comment on above: Performed By: #### C BC #### [facility] [address] [place] [address] Dr. Liang Diana MONO # 1.1 103/ul Critically high 0.3-0.8 [facility] Comment on above: Performed By: #### C BC #### [facility] [address] [place] [address] Dr. Liang Diana Monocytes/100 WBC (Bld) 10.1 % Normal 1.7-12.0 [facility] Comment on above: Performed By: #### C BC #### [facility] [address] [place] [address] Dr. Liang Diana NEUT # 8.0 103/ul Critically high 1.4-6.5 [facility] Comment on above: Performed By: #### C BC #### [facility] [address] [place] [address] Dr. Liang Diana Neutrophils/100 WBC (Bld) 71.2 % Normal 43.0-75.0 [facility] Comment on above: Performed By: #### C BC #### [facility] [address] [place] [address] Dr. Liang Diana Platelet mean volume (Bld) [Entitic vol] 9.0 fL Critically low 9.5-13.5 [facility] Comment on above: Performed By: #### C BC #### [facility] [address] [address] [address] Liang Diana PLT 258 103/ul Normal 150-450 [facility] Comment on above: Performed By: #### C BC #### [facility] [address] [place] [address] Dr. Liang Diana RBC 4.46 106/ul Normal 4.20-5.40 [facility] Comment on above: Performed By: #### C BC #### [facility] [address] [place] [address] Dr. Liang Diana WBC 11.3 103/ul Critically high 4.0-11.0 [facility] Comment on above: Performed By: #### C BC #### [facility] [address] [place] [address] Dr. Liang Diana FREE THYROXINE INDEX T7on FTI 4.48 Normal 1.30-4.50 [facility] Comment on above: Performed By: #### L IPID, TSH, CMP, T7 #### [facility] [address] [place] [address] Dr. Liang Diana T3U 37.0 % Normal 30.0-39.0 [facility] Comment on above: Performed By: #### L IPID, TSH, CMP, T7 #### [facility] [address] [place] [address] Dr. Liang Diana T4 [Mass/Vol] 12.10 ug/dL Normal 4.80-13.90 [facility] Comment on above: Performed By: #### L IPID, TSH, CMP, T7 #### [facility] [address] [place] [address] Dr. Liang Diana GLYCOHEMOGLOBIN A1Con 2021 ADA RECOMMENDATION SEE BELOW Normal [facility] Comment on above: Result Comment: ADA RECOMMENDED LIMIT 4.0 - 6.0 ADA THERAPEUTIC TARGET < 7.0 ACTION SUGGESTED > 7.0 Performed By: #### A 1C #### [facility] [address] [place] [address] Dr. Liang Diana Glucose [Mass/Vol] 108 mg/dL Normal [facility] Comment on above: Performed By: #### A 1C #### [facility] [address] [address] [address] Liang Diana HbA1c (Bld) [Mass fraction] 5.4 % Normal 4.5-6.2 [facility] Comment on above: Performed By: #### A 1C #### [facility] [address] [address] [address] Liang Diana LIPID PROFILEon 05-30-2022 CHOL-HDL RATIO NORM SEE BELOW Normal [facility] Comment on above: Result Comment: 3.3 - 4.4 LOW RISK 4.4 - 7.1 AVERAGE RISK 7.1 - 11.0 MODERATE RISK >11.0 HIGH RISK Performed By: #### L IPID, TSH, CMP, T7 #### [facility] [address] [address] [address] Liang Diana Cholesterol [Mass/Vol] 219 mg/dL Critically high <=200 [facility] Comment on above: Performed By: #### L IPID, TSH, CMP, T7 #### [facility] [address] [address] [address] Liang Diana Cholesterol in HDL [Mass/Vol] 69 mg/dL Critically high 40-60 [facility] Comment on above: Performed By: #### L IPID, TSH, CMP, T7 #### [facility] [address] [address] [address] Liang Diana Cholesterol in LDL [Mass/Vol] 134.4 mg/dL Normal [facility] Comment on above: Performed By: #### L IPID, TSH, CMP, T7 #### [facility] [address] [address] [address] Liang Diana Cholesterol.total/Cho lesterol in HDL [Mass ratio] 3.2 {ratio} Normal [facility] Comment on above: Performed By: #### L IPID, TSH, CMP, T7 #### [facility] [address] [address] [address] Liang Diana HDL NORMAL > or = 60 mg/dl - LOW CARDIOVASCULAR RISK <40 mg/dl - HIGH CARDIOVASCULAR RISK Normal [facility] Comment on above: Performed By: #### L IPID, TSH, CMP, T7 #### [facility] [address] [address] [address] Liang Diana LDL CALC NORMAL SEE BELOW Normal [facility] Comment on above: Result Comment: <100 mg/dl OPTIMAL 100 - 129 mg/dl NEAR OR ABOVE OPTIMAL 130 - 159 mg/dl BORDERLINE HIGH 160 - 189 mg/dl HIGH >190 mg/dl VERY HIGH Performed By: #### L IPID, TSH, CMP, T7 #### [facility] [address] [address] [address] Liang Diana Triglyceride [Mass/Vol] 78 mg/dL Normal <=150 [facility] Comment on above: Performed By: #### L IPID, TSH, CMP, T7 #### [facility] [address] [address] [address] Liang Daina VLDL CALC 15.6 mg/dL Normal [facility] Comment on above: Performed By: #### L IPID, TSH, CMP, T7 #### [facility] [address] [address] [address] Liang Diana PROF 14(COMP METB)on 022 Albumin [Mass/Vol] 4.0 g/dL Normal 3.4-5.0 [facility] Comment on above: Performed By: #### L IPID, TSH, CMP, T7 #### [facility] [address] [address] [address] Liang Diana Albumin/Globulin [Mass ratio] 1.2 {ratio} Normal [facility] Comment on above: Performed By: #### L IPID, TSH, CMP, T7 #### [facility] [address] [address] [address] Liang Diana ALP [Catalytic activity/Vol] 66 U/L Normal 46-116 [facility] Comment on above: Performed By: #### L IPID, TSH, CMP, T7 #### [facility] [address] [address] [address] Liang Diana ALT [Catalytic activity/Vol] 21 U/L Normal 14-59 [facility] Comment on above: Performed By: #### L IPID, TSH, CMP, T7 #### [facility] [address] [address] [address] Liang Diana Anion gap [Moles/Vol] 11.1 mmol/L Normal [facility] Comment on above: Performed By: #### L IPID, TSH, CMP, T7 #### [facility] [address] [address] [address] Liang Diana AST [Catalytic activity/Vol] 18 U/L Normal 15-37 [facility] Comment on above: Performed By: #### L IPID, TSH, CMP, T7 #### [facility] [address] [address] [address] Liang Diana Bilirubin [Mass/Vol] 0.6 mg/dL Normal 0.2-1.0 [facility] Comment on above: Performed By: #### L IPID, TSH, CMP, T7 #### [facility] [address] [place] [address] Dr. Liang Diana Calcium [Mass/Vol] 9.2 mg/dL Normal 8.5-10.1 [facility] Comment on above: Performed By: #### L IPID, TSH, CMP, T7 #### [facility] [address] [address] [address] Liang Diana Chloride [Moles/Vol] 104 mmol/L Normal 98-107 [facility] Comment on above: Performed By: #### L IPID, TSH, CMP, T7 #### [facility] [address] [address] [address] Liang Diana CO2 [Moles/Vol] 29.5 mmol/L Normal 21.0-32.0 [facility] Comment on above: Performed By: #### L IPID, TSH, CMP, T7 #### [facility] [address] [place] [address] Dr. Liang Diana Creatinine [Mass/Vol] 0.68 mg/dL Normal 0.55-1.02 [facility] Comment on above: Performed By: #### L IPID, TSH, CMP, T7 #### [facility] [address] [address] [address] Liang Diana EGFR-AF RUSSIAN >60 Normal >=60 [facility] Comment on above: Performed By: #### L IPID, TSH, CMP, T7 #### [facility] [address] [address] [address] Liang Diana EGFR-NON AF RUSSIAN >60 Normal >=60 [facility] Comment on above: Performed By: #### L IPID, TSH, CMP, T7 #### [facility] [address] [address] [address] Liang Diana Globulin (S) [Mass/Vol] 3.3 g/dL Normal [facility] Comment on above: Performed By: #### L IPID, TSH, CMP, T7 #### [facility] [address] [address] [address] Liang Diana Glucose [Mass/Vol] 96 mg/dL Normal 74-106 [facility] Comment on above: Performed By: #### L IPID, TSH, CMP, T7 #### [facility] [address] [address] [address] Liang Diana Potassium [Moles/Vol] 4.6 mmol/L Normal 3.5-5.1 [facility] Comment on above: Performed By: #### L IPID, TSH, CMP, T7 #### [facility] [address] [address] [address] Liang Diana Protein [Mass/Vol] 7.3 g/dL Normal 6.4-8.2 [facility] Comment on above: Performed By: #### L IPID, TSH, CMP, T7 #### [facility] [address] [address] [address] Liang Diana Sodium [Moles/Vol] 140 mmol/L Normal 136-145 [facility] Comment on above: Performed By: #### L IPID, TSH, CMP, T7 #### [facility] [address] [address] [address] Liang Diana Urea nitrogen [Mass/Vol] 7.0 mg/dL Normal 7.0-18.0 [facility] Comment on above: Performed By: #### L IPID, TSH, CMP, T7 #### [facility] [address] [address] [address] Liagn Diana Urea nitrogen/Creatinine [Mass ratio] 10.3 mg/mg Normal [facility] Comment on above: Performed By: #### L IPID, TSH, CMP, T7 #### [facility] [address] [address] [address] Liang Diana TSHon 05-30-2022 TSH 0.872 uIU/mL Normal 0.358-3.740 [facility] Comment on above: Performed By: #### L IPID, TSH, CMP, T7 #### [facility] [address] [address] [address] Liang Diana XR LSPINE MIN 4 [...] by: GEOFF ANDRADE Date: 2021-09-09 11:23 Normal [facility] Encounters Encounter Date Encounter Type Care Provider Facility Start: 06-06-2022 End: 10-18-[address] PANDA DAVIDSON Facility:[facility] Start: 06-02-2022 Encounter for genera l adult medical examination without abnormal findings DR PANDA DAVIDSON [facility] Start: 06-01-2022 End: 06-02-[address] PANDA DAVIDSON Facility:[facility] Start: 05-30-2022 End: 05-31-[address] PANDA DAVIDSON Facility:[facility] Start: 05-30-2022 End: 05-31-2022 Encounter for general adult medical examination without abnormal findings DR PANDA DAVIDSON Facility:[facility] Start: 09-09-2021 End: 09-10-[address] PANDA DAVIDSON Facility:[facility] Payers Date Payer Category Payer Unknown [id number] 2.16.84 [id number] 1965 Unknown [id number] 2.16.84 [id number] 1965 Unknown [id number] 2.16.84 [id number] 1965 Unknown [id number] 2.16.84 [id number] 1959 Medicare [id number] 1959 Unknown [id number] Summary Purpose Family History No Family History Records Found Advance Directives No Advanced Directives Records Found Additional Source Comments INFORMATION SOURCE (unrecogn ized section and content) DATE CREATED AUTHOR 06/22/2022 [facility] FOR RECORDS PERTAINING TO PATIENTS WHO ARE [...] BE BASED ON THE PRIMARY CLINICAL RECORDS. [facility] [employer] [facility]. provides no warranty or guarantee of the accuracy or completeness of information in this document.
[2024-06-07 11:02] LABS: Free T3 1.88 pg/mL (2.18-3.98); Thyroid Stimulating Hormone 0.952 uIU/mL (0.358-3.740)
== END 2024-06-07 08:49 | disposition home or self-care (01) ==
LOC: LAB 08:52
PROVIDERS: PCP Family Medicine; Visit Provider Family Medicine
DX: R94.6 Abnormal results of thyroid function studies (principal)
CPT/HCPCS: 36415; 84436; 84443; 84481

== ENCOUNTER 2024-07-10 08:17 | Outpatient (OUT) | payer MEDICARE, SELFPAY ==
--- OUTSIDE RECORDS SUMMARY | 2024-07-10 08:39 | XMS_ITS | CCD ---
Author Organization [facility] Care Team Providers Care Coloring Room Man Name Role Phone LETY, DR MOSQUEDA Consulting [...] (1 source) Amoxicillin Drug Allergy 08-18-2016 [facility] Repository (1 source) Codeine Drug Allergy 02-17-2016 [facility] (1 source) Morphine Drug Allergy 08-18-2016 [facility] Rep[facility] Problems Problem Classification Problem Date [...] 06-02-2022 Episodic Other aftercare (1 source) Other watermaster (current) drug therapy; Translations: [OTH LONG-TERM CURRENT DRUG THERAPY] Onset: 06-02-2022 Episodic Other [...] by: GEOFF ANDRADE Date: 2022-06-06 22:04 Normal [facility] MG MAMM SCREEN 3D ROMA CADon 06-01-2022 MG MAMM SCREEN 3D ROMA CAD Patient: TARAH ADAME Exam Date: 06/01/2022 : 1965 Gender:F Ordering : DR PANDA DAVIDSON . Admission #: [id number] Family : Order #: [id number] CLICK HERE TO VIEW EXAM RADIOLOGY REPORT PROCEDURE: MAMMOGRAM SCREENING 3D BILATERAL CAD COMPARISON: MAMMO ROMA LUIS DIG, 11/04/2010. INDICATIONS: Screening mammography Calculator Name NCI Breast Cancer Risk Assessment Tool 5 Year Breast Cancer Risk 1.10% Lifetime Breast Cancer Risk 7.10% Personal Breast Cancer No Personal Ovarian Cancer No Treatments None Family Cancers Aunt-maternal with breast cancer at age 83. LOCATION: [facility] BREAST COMPOSITION: Scattered areas fibroglandular density. [...] MD on 06/01/2022 at 09:59 Normal [facility] CBC AUTO DIFFon 05-30-2022 BASO # 0.1 103/ul Normal 0.0-0.1 [facility] Comment on above: Performed By: #### C BC #### [facility] [address] [address] [address] Liang Diana Basophils/100 WBC (Bld) 0.8 % Normal 0.2-2.0 [facility] Comment on above: Performed By: #### C BC #### [facility] [address] [address] [address] Liang Diana EO # 0.3 103/ul Normal 0.0-0.7 [facility] Comment on above: Performed By: #### C BC #### [facility] [address] [address] [address] Liang Diana Eosinophils/100 WBC (Bld) 2.4 % Normal 0.9-7.0 [facility] Comment on above: Performed By: #### C BC #### [facility] [address] [place] [address] Dr. Liang Diana Erythrocyte distribution width (RBC) [Ratio] 13.5 % Normal 11.0-15.0 [facility] Comment on above: Performed By: #### C BC #### [facility] [address] [place] [address] Dr. Liang Diana Hematocrit (Bld) [Volume fraction] 43.1 % Normal 36.0-48.0 [facility] Comment on above: Performed By: #### C BC #### [facility] [address] [place] [address] Dr. Liang Diana Hemoglobin (Bld) [Mass/Vol] 14.3 g/dL Normal 12.0-16.0 [facility] Comment on above: Performed By: #### C BC #### [facility] [address] [place] [address] Dr. Liang Diana IG # 0.14 10e3/ul Critically high 0.00-0.03 [facility] Comment on above: Performed By: #### C BC #### [facility] [address] [place] [address] Dr. Liang Diana IG % 1.2 % Critically high 0.0-0.5 [facility] Comment on above: Performed By: #### C BC #### [facility] [address] [place] [address] Dr. Liang Diana LYMPH # 1.6 103/ul Normal 1.2-3.8 [facility] Comment on above: Performed By: #### C BC #### [facility] [address] [place] [address] Dr. Liang Diana Lymphocytes/100 WBC (Bld) 14.3 % Critically low 20.5-60.0 [facility] Comment on above: Performed By: #### C BC #### [facility] [address] [place] [address] Dr. Liang Diana MANUAL DIFF REQ NO Normal [facility] Comment on above: Performed By: #### C BC #### [facility] [address] [place] [address] Dr. Liang Diana MCH (RBC) [Entitic mass] 32.1 pg Normal 26.7-34.0 [facility] Comment on above: Performed By: #### C BC #### [facility] [address] [place] [address] Dr. Liang Diana MCHC (RBC) [Mass/Vol] 33.2 g/dL Normal 29.9-35.2 [facility] Comment on above: Performed By: #### C BC #### [facility] [address] [address] [address] Liang Diana MCV (RBC) [Entitic vol] 96.6 fL Normal 81.0-99.0 [facility] Comment on above: Performed By: #### C BC #### [facility] [address] [place] [address] Dr. Liang Diana MONO # 1.1 103/ul Critically high 0.3-0.8 [facility] Comment on above: Performed By: #### C BC #### [facility] [address] [place] [address] Dr. Liang Diana Monocytes/100 WBC (Bld) 10.1 % Normal 1.7-12.0 [facility] Comment on above: Performed By: #### C BC #### [facility] [address] [place] [address] Dr. Liang Diana NEUT # 8.0 103/ul Critically high 1.4-6.5 [facility] Comment on above: Performed By: #### C BC #### [facility] [address] [place] [address] Dr. Liang Diana Neutrophils/100 WBC (Bld) 71.2 % Normal 43.0-75.0 [facility] Comment on above: Performed By: #### C BC #### [facility] [address] [place] [address] Dr. Liang Diana Platelet mean volume (Bld) [Entitic vol] 9.0 fL Critically low 9.5-13.5 [facility] Comment on above: Performed By: #### C BC #### [facility] [address] [address] [address] Liang Diana PLT 258 103/ul Normal 150-450 [facility] Comment on above: Performed By: #### C BC #### [facility] [address] [place] [address] Dr. Liang Diana RBC 4.46 106/ul Normal 4.20-5.40 [facility] Comment on above: Performed By: #### C BC #### [facility] [address] [place] [address] Dr. Liang Diana WBC 11.3 103/ul Critically high 4.0-11.0 [facility] Comment on above: Performed By: #### C BC #### [facility] [address] [place] [address] Dr. Liang Diana FREE THYROXINE INDEX T7on FTI 4.48 Normal 1.30-4.50 [facility] Comment on above: Performed By: #### L IPID, TSH, CMP, T7 #### [facility] [address] [place] [address] Dr. Liang Diana T3U 37.0 % Normal 30.0-39.0 [facility] Comment on above: Performed By: #### L IPID, TSH, CMP, T7 #### [facility] [address] [place] [address] Dr. Liang Diana T4 [Mass/Vol] 12.10 ug/dL Normal 4.80-13.90 [facility] Comment on above: Performed By: #### L IPID, TSH, CMP, T7 #### [facility] [address] [place] [address] Dr. Liang Diana GLYCOHEMOGLOBIN A1Con 2021 ADA RECOMMENDATION SEE BELOW Normal [facility] Comment on above: Result Comment: ADA RECOMMENDED LIMIT 4.0 - 6.0 ADA THERAPEUTIC TARGET < 7.0 ACTION SUGGESTED > 7.0 Performed By: #### A 1C #### [facility] [address] [place] [address] Dr. Liang Diana Glucose [Mass/Vol] 108 mg/dL Normal [facility] Comment on above: Performed By: #### A 1C #### [facility] [address] [address] [address] Liang Diana HbA1c (Bld) [Mass fraction] 5.4 % Normal 4.5-6.2 [facility] Comment on above: Performed By: #### A 1C #### [facility] [address] [address] [address] Liang Diana LIPID PROFILEon 05-30-2022 CHOL-HDL RATIO NORM SEE BELOW Normal [facility] Comment on above: Result Comment: 3.3 - 4.4 LOW RISK 4.4 - 7.1 AVERAGE RISK 7.1 - 11.0 MODERATE RISK >11.0 HIGH RISK Performed By: #### L IPID, TSH, CMP, T7 #### [facility] [address] [address] [address] Liang Diana Cholesterol [Mass/Vol] 219 mg/dL Critically high <=200 [facility] Comment on above: Performed By: #### L IPID, TSH, CMP, T7 #### [facility] [address] [address] [address] Liang Diana Cholesterol in HDL [Mass/Vol] 69 mg/dL Critically high 40-60 [facility] Comment on above: Performed By: #### L IPID, TSH, CMP, T7 #### [facility] [address] [address] [address] Liang Diana Cholesterol in LDL [Mass/Vol] 134.4 mg/dL Normal [facility] Comment on above: Performed By: #### L IPID, TSH, CMP, T7 #### [facility] [address] [address] [address] Liang Diana Cholesterol.total/Cho lesterol in HDL [Mass ratio] 3.2 {ratio} Normal [facility] Comment on above: Performed By: #### L IPID, TSH, CMP, T7 #### [facility] [address] [address] [address] Liang Diana HDL NORMAL > or = 60 mg/dl - LOW CARDIOVASCULAR RISK <40 mg/dl - HIGH CARDIOVASCULAR RISK Normal [facility] Comment on above: Performed By: #### L IPID, TSH, CMP, T7 #### [facility] [address] [address] [address] Liang Diana LDL CALC NORMAL SEE BELOW Normal [facility] Comment on above: Result Comment: <100 mg/dl OPTIMAL 100 - 129 mg/dl NEAR OR ABOVE OPTIMAL 130 - 159 mg/dl BORDERLINE HIGH 160 - 189 mg/dl HIGH >190 mg/dl VERY HIGH Performed By: #### L IPID, TSH, CMP, T7 #### [facility] [address] [address] [address] Liang Diana Triglyceride [Mass/Vol] 78 mg/dL Normal <=150 [facility] Comment on above: Performed By: #### L IPID, TSH, CMP, T7 #### [facility] [address] [address] [address] Liang Diana VLDL CALC 15.6 mg/dL Normal [facility] Comment on above: Performed By: #### L IPID, TSH, CMP, T7 #### [facility] [address] [address] [address] Liang Diana PROF 14(COMP METB)on 022 Albumin [Mass/Vol] 4.0 g/dL Normal 3.4-5.0 [facility] Comment on above: Performed By: #### L IPID, TSH, CMP, T7 #### [facility] [address] [address] [address] Liang Diana Albumin/Globulin [Mass ratio] 1.2 {ratio} Normal [facility] Comment on above: Performed By: #### L IPID, TSH, CMP, T7 #### [facility] [address] [address] [address] Liang Diana ALP [Catalytic activity/Vol] 66 U/L Normal 46-116 [facility] Comment on above: Performed By: #### L IPID, TSH, CMP, T7 #### [facility] [address] [address] [address] Liang Diana ALT [Catalytic activity/Vol] 21 U/L Normal 14-59 [facility] Comment on above: Performed By: #### L IPID, TSH, CMP, T7 #### [facility] [address] [address] [address] Liang Diana Anion gap [Moles/Vol] 11.1 mmol/L Normal [facility] Comment on above: Performed By: #### L IPID, TSH, CMP, T7 #### [facility] [address] [address] [address] Liang Diana AST [Catalytic activity/Vol] 18 U/L Normal 15-37 [facility] Comment on above: Performed By: #### L IPID, TSH, CMP, T7 #### [facility] [address] [address] [address] Liang Diana Bilirubin [Mass/Vol] 0.6 mg/dL Normal 0.2-1.0 [facility] Comment on above: Performed By: #### L IPID, TSH, CMP, T7 #### [facility] [address] [place] [address] Dr. Liang Diana Calcium [Mass/Vol] 9.2 mg/dL Normal 8.5-10.1 [facility] Comment on above: Performed By: #### L IPID, TSH, CMP, T7 #### [facility] [address] [address] [address] Liang Diana Chloride [Moles/Vol] 104 mmol/L Normal 98-107 [facility] Comment on above: Performed By: #### L IPID, TSH, CMP, T7 #### [facility] [address] [address] [address] Liang Diana CO2 [Moles/Vol] 29.5 mmol/L Normal 21.0-32.0 [facility] Comment on above: Performed By: #### L IPID, TSH, CMP, T7 #### [facility] [address] [place] [address] Dr. Liang Diana Creatinine [Mass/Vol] 0.68 mg/dL Normal 0.55-1.02 [facility] Comment on above: Performed By: #### L IPID, TSH, CMP, T7 #### [facility] [address] [address] [address] Liang Diana EGFR-AF PRYDEINIG >60 Normal >=60 [facility] Comment on above: Performed By: #### L IPID, TSH, CMP, T7 #### [facility] [address] [address] [address] Liang Diana EGFR-NON AF PRYDEINIG >60 Normal >=60 [facility] Comment on above: Performed By: #### L IPID, TSH, CMP, T7 #### [facility] [address] [address] [address] Liang Diana Globulin (S) [Mass/Vol] 3.3 g/dL Normal [facility] Comment on above: Performed By: #### L IPID, TSH, CMP, T7 #### [facility] [address] [address] [address] Liang Diana Glucose [Mass/Vol] 96 mg/dL Normal 74-106 [facility] Comment on above: Performed By: #### L IPID, TSH, CMP, T7 #### [facility] [address] [address] [address] Liang Diana Potassium [Moles/Vol] 4.6 mmol/L Normal 3.5-5.1 [facility] Comment on above: Performed By: #### L IPID, TSH, CMP, T7 #### [facility] [address] [address] [address] Liang Diana Protein [Mass/Vol] 7.3 g/dL Normal 6.4-8.2 [facility] Comment on above: Performed By: #### L IPID, TSH, CMP, T7 #### [facility] [address] [address] [address] Liang Diana Sodium [Moles/Vol] 140 mmol/L Normal 136-145 [facility] Comment on above: Performed By: #### L IPID, TSH, CMP, T7 #### [facility] [address] [address] [address] Liang Diana Urea nitrogen [Mass/Vol] 7.0 mg/dL Normal 7.0-18.0 [facility] Comment on above: Performed By: #### L IPID, TSH, CMP, T7 #### [facility] [address] [address] [address] Liang Diana Urea nitrogen/Creatinine [Mass ratio] 10.3 mg/mg Normal [facility] Comment on above: Performed By: #### L IPID, TSH, CMP, T7 #### [facility] [address] [address] [address] Liang Diana TSHon 05-30-2022 TSH 0.872 uIU/mL Normal 0.358-3.740 [facility] Comment on above: Performed By: #### L IPID, TSH, CMP, T7 #### [facility] [address] [address] [address] Liang Diana XR LSPINE MIN 4 [...] by: GEOFF ANDRADE Date: 2021-09-09 11:23 Normal [facility] Encounters Encounter Date Encounter Type Care Provider Facility Start: 06-06-2022 End: 10-18-[address] PANDA DAVIDSON Facility:[facility] Start: 06-02-2022 Encounter for genera l adult medical examination without abnormal findings DR PANDA DAVIDSON [facility] Start: 06-01-2022 End: 06-02-[address] PANDA DAVIDSON Facility:[facility] Start: 05-30-2022 End: 05-31-[address] PANDA DAVIDSON Facility:[facility] Start: 05-30-2022 End: 05-31-2022 Encounter for general adult medical examination without abnormal findings DR PANDA DAVIDSON Facility:[facility] Start: 09-09-2021 End: 09-10-[address] PANDA DAVIDSON Facility:[facility] Payers Date Payer Category Payer Unknown [id number] 2.16.84 [id number] 1965 Unknown [id number] 2.16.84 [id number] 1965 Unknown [id number] 2.16.84 [id number] 1965 Unknown [id number] 2.16.84 [id number] 1959 Medicare [id number] 1959 Unknown [id number] Summary Purpose Family History No Family History Records Found Advance Directives No Advanced Directives Records Found Additional Source Comments INFORMATION SOURCE (unrecogn ized section and content) DATE CREATED AUTHOR 06/22/[address] [facility] FOR RECORDS PERTAINING TO PATIENTS WHO ARE [...] BE BASED ON THE PRIMARY CLINICAL RECORDS. [facility]. provides no warranty or guarantee of the accuracy or completeness of information in this document.
[2024-07-10 09:23] LABS: Thyroid Stimulating Hormone 0.758 uIU/mL (0.358-3.740)
[2024-07-10 10:02] LABS: Free T4 1.11 ng/dL (0.76-1.46)
== END 2024-07-10 08:18 | disposition home or self-care (01) ==
LOC: LAB 08:23
PROVIDERS: PCP Family Medicine; Visit Provider Family Medicine
DX: R79.89 Other specified abnormal findings of blood chemistry (principal); E03.9 Hypothyroidism, unspecified
CPT/HCPCS: 36415; 84439; 84443

== ENCOUNTER 2025-04-21 16:05 | Emergency (ER) | payer MEDICARE, SELFPAY ==
[2025-04-21 16:11] VITALS: BP 136/82; PULSE 92; TEMP 37.4; O2SAT 97; BMI 27.5
--- OUTSIDE RECORDS SUMMARY | 2025-04-21 16:15 | XMS_ITS | CCD ---
Author Organization [facility] CliniSymt Care Team Providers Care Screen Door Maker Name Role Phone LETY, DR MOSQUEDA Consulting [...] DR MOSQUEDA Primary Care Unavailable HOY, DR MSOQUEDA Admitting Unavailable HOY, DR MOSQUEDA Attending Unavailable HOY, DR MOSQUEDA Consulting Unavailable HOY, DR MOSQUEDA Primary Care Unavailable HOY, DR MOSQUEDA Admitting Unavailable HOY, DR MOSQUEDA Attending Unavailable ZIEBER, DR GEOFF Bella Consulting Unavailable Allergies Allergy Classification Reported Allergen(s) Allergy Type Date of Onset Reaction(s) Facility (1 source) Amoxicillin Drug Allergy 08-18-2016 [facility] (1 source) Codeine Drug Allergy 02-17-2016 [facility] (1 source) Morphine Drug Allergy 08-18-2016 [facility] Problems Problem Classification Problem [...] 06-02-2022 Episodic Other aftercare (1 source) 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 Admission #: [id number] Family : Order #: [id number] CLICK HERE TO VIEW EXAM RADIOLOGY REPORT PROCEDURE: MAMMOGRAM SCREENING 3D BILATERAL CAD COMPARISON: MAMMO ROMA LUIS DIG, 11/04/2010. INDICATIONS: Screening mammography Calculator Name NCI Breast Cancer Risk Assessment Tool 5 Year Breast Cancer Risk 1.10% Lifetime Breast Cancer Risk 7.10% Personal Breast Cancer No Personal Ovarian Cancer No Treatments None Family Cancers Aunt-maternal with breast cancer at age 83. LOCATION: [facility] BREAST COMPOSITION: Scattered areas fibroglandular [...] MD on 06/01/2022 at 09:59 Normal [facility] CBC AUTO DIFFon 05-30-2022 BASO # 0.1 103/ul Normal 0.0-0.1 [facility] Comment on above: Performed By: #### C BC #### [facility] [address] [address] [address] Liang Diana Basophils/100 WBC (Bld) 0.8 % Normal 0.2-2.0 [facility] Comment on above: Performed By: #### C BC #### [facility] [address] [address] [address] Liang Diana EO # 0.3 103/ul Normal 0.0-0.7 [facility] Comment on above: Performed By: #### C BC #### [facility] [address] [address] [address] Liang Diana Eosinophils/100 WBC (Bld) 2.4 % Normal 0.9-7.0 [facility] Comment on above: Performed By: #### C BC #### [facility] [address] [place] [address] Dr. Liang Diana Erythrocyte distribution width (RBC) [Ratio] 13.5 % Normal 11.0-15.0 [facility] Comment on above: Performed By: #### C BC #### [facility] [address] [place] [address] Dr. Liang Diana Hematocrit (Bld) [Volume fraction] 43.1 % Normal 36.0-48.0 [facility] Comment on above: Performed By: #### C BC #### [facility] [address] [place] [address] Dr. Liang Diana Hemoglobin (Bld) [Mass/Vol] 14.3 g/dL Normal 12.0-16.0 [facility] Comment on above: Performed By: #### C BC #### [facility] [address] [place] [address] Dr. Liang Diana IG # 0.14 10e3/ul Critically high 0.00-0.03 [facility] Comment on above: Performed By: #### C BC #### [facility] [address] [place] [address] Dr. Liang Diana IG % 1.2 % Critically high 0.0-0.5 [facility] Comment on above: Performed By: #### C BC #### [facility] [address] [place] [address] Dr. Liang Diana LYMPH # 1.6 103/ul Normal 1.2-3.8 [facility] Comment on above: Performed By: #### C BC #### [facility] [address] [place] [address] Dr. Liang Diana Lymphocytes/100 WBC (Bld) 14.3 % Critically low 20.5-60.0 [facility] Comment on above: Performed By: #### C BC #### [facility] [address] [place] [address] Dr. Liang Diana MANUAL DIFF REQ NO Normal [facility] Comment on above: Performed By: #### C BC #### [facility] [address] [place] [address] Dr. Liang Diana MCH (RBC) [Entitic mass] 32.1 pg Normal 26.7-34.0 [facility] Comment on above: Performed By: #### C BC #### [facility] [address] [place] [address] Dr. Liang Diana MCHC (RBC) [Mass/Vol] 33.2 g/dL Normal 29.9-35.2 [facility] Comment on above: Performed By: #### C BC #### [facility] [address] [address] [address] Liang Diana MCV (RBC) [Entitic vol] 96.6 fL Normal 81.0-99.0 [facility] Comment on above: Performed By: #### C BC #### [facility] [address] [place] [address] Dr. Liang Diana MONO # 1.1 103/ul Critically high 0.3-0.8 [facility] Comment on above: Performed By: #### C BC #### [facility] [address] [place] [address] Dr. Liang Diana Monocytes/100 WBC (Bld) 10.1 % Normal 1.7-12.0 [facility] Comment on above: Performed By: #### C BC #### [facility] [address] [place] [address] Dr. Liang Diana NEUT # 8.0 103/ul Critically high 1.4-6.5 [facility] Comment on above: Performed By: #### C BC #### [facility] [address] [place] [address] Dr. Liang Diana Neutrophils/100 WBC (Bld) 71.2 % Normal 43.0-75.0 [facility] Comment on above: Performed By: #### C BC #### [facility] [address] [place] [address] Dr. Liang Diana Platelet mean volume (Bld) [Entitic vol] 9.0 fL Critically low 9.5-13.5 [facility] Comment on above: Performed By: #### C BC #### [facility] [address] [address] [address] Liang Diana PLT 258 103/ul Normal 150-450 [facility] Comment on above: Performed By: #### C BC #### [facility] [address] [place] [address] Dr. Liang Diana RBC 4.46 106/ul Normal 4.20-5.40 [facility] Comment on above: Performed By: #### C BC #### [facility] [address] [place] [address] Dr. Liang Diana WBC 11.3 103/ul Critically high 4.0-11.0 [facility] Comment on above: Performed By: #### C BC #### [facility] [address] [place] [address] Dr. Liang Diana FREE THYROXINE INDEX T7on FTI 4.48 Normal 1.30-4.50 [facility] Comment on above: Performed By: #### L IPID, TSH, CMP, T7 #### [facility] [address] [place] [address] Dr. Liang Diana T3U 37.0 % Normal 30.0-39.0 [facility] Comment on above: Performed By: #### L IPID, TSH, CMP, T7 #### [facility] [address] [place] [address] Dr. Liang Diana T4 [Mass/Vol] 12.10 ug/dL Normal 4.80-13.90 [facility] Comment on above: Performed By: #### L IPID, TSH, CMP, T7 #### [facility] [address] [place] [address] Dr. Liang Diana GLYCOHEMOGLOBIN A1Con 2021 ADA RECOMMENDATION SEE BELOW Normal [facility] Comment on above: Result Comment: ADA RECOMMENDED LIMIT 4.0 - 6.0 ADA THERAPEUTIC TARGET < 7.0 ACTION SUGGESTED > 7.0 Performed By: #### A 1C #### [facility] [address] [place] [address] Dr. Liang Diana Glucose [Mass/Vol] 108 mg/dL Normal [facility] Comment on above: Performed By: #### A 1C #### [facility] [address] [address] [address] Liang Diana HbA1c (Bld) [Mass fraction] 5.4 % Normal 4.5-6.2 [facility] Comment on above: Performed By: #### A 1C #### [facility] [address] [address] [address] Liang Diana LIPID PROFILEon 05-30-2022 CHOL-HDL RATIO NORM SEE BELOW Normal [facility] Comment on above: Result Comment: 3.3 - 4.4 LOW RISK 4.4 - 7.1 AVERAGE RISK 7.1 - 11.0 MODERATE RISK >11.0 HIGH RISK Performed By: #### L IPID, TSH, CMP, T7 #### [facility] [address] [address] [address] Liang Diana Cholesterol [Mass/Vol] 219 mg/dL Critically high <=200 [facility] Comment on above: Performed By: #### L IPID, TSH, CMP, T7 #### [facility] [address] [address] [address] Liang Diana Cholesterol in HDL [Mass/Vol] 69 mg/dL Critically high 40-60 [facility] Comment on above: Performed By: #### L IPID, TSH, CMP, T7 #### [facility] [address] [address] [address] Liang Diana Cholesterol in LDL [Mass/Vol] 134.4 mg/dL Normal [facility] Comment on above: Performed By: #### L IPID, TSH, CMP, T7 #### [facility] [address] [address] [address] Liang Diana Cholesterol.total/Cho lesterol in HDL [Mass ratio] 3.2 {ratio} Normal [facility] Comment on above: Performed By: #### L IPID, TSH, CMP, T7 #### [facility] [address] [address] [address] Liang Diana HDL NORMAL > or = 60 mg/dl - LOW CARDIOVASCULAR RISK <40 mg/dl - HIGH CARDIOVASCULAR RISK Normal [facility] Comment on above: Performed By: #### L IPID, TSH, CMP, T7 #### [facility] [address] [address] [address] Liang Diana LDL CALC NORMAL SEE BELOW Normal [facility] Comment on above: Result Comment: <100 mg/dl OPTIMAL 100 - 129 mg/dl NEAR OR ABOVE OPTIMAL 130 - 159 mg/dl BORDERLINE HIGH 160 - 189 mg/dl HIGH >190 mg/dl VERY HIGH Performed By: #### L IPID, TSH, CMP, T7 #### [facility] [address] [address] [address] Liang Diana Triglyceride [Mass/Vol] 78 mg/dL Normal <=150 [facility] Comment on above: Performed By: #### L IPID, TSH, CMP, T7 #### [facility] [address] [address] [address] Liang Diana VLDL CALC 15.6 mg/dL Normal [facility] Comment on above: Performed By: #### L IPID, TSH, CMP, T7 #### [facility] [address] [address] [address] Liang Diana PROF 14(COMP METB)on 022 Albumin [Mass/Vol] 4.0 g/dL Normal 3.4-5.0 [facility] Comment on above: Performed By: #### L IPID, TSH, CMP, T7 #### [facility] [address] [address] [address] Liang Diana Albumin/Globulin [Mass ratio] 1.2 {ratio} Normal [facility] Comment on above: Performed By: #### L IPID, TSH, CMP, T7 #### [facility] [address] [address] [address] Liang Diana ALP [Catalytic activity/Vol] 66 U/L Normal 46-116 [facility] Comment on above: Performed By: #### L IPID, TSH, CMP, T7 #### [facility] [address] [address] [address] Liang Diana ALT [Catalytic activity/Vol] 21 U/L Normal 14-59 [facility] Comment on above: Performed By: #### L IPID, TSH, CMP, T7 #### [facility] [address] [address] [address] Liang Diana Anion gap [Moles/Vol] 11.1 mmol/L Normal [facility] Comment on above: Performed By: #### L IPID, TSH, CMP, T7 #### [facility] [address] [address] [address] Liang Diana AST [Catalytic activity/Vol] 18 U/L Normal 15-37 [facility] Comment on above: Performed By: #### L IPID, TSH, CMP, T7 #### [facility] [address] [address] [address] Liang Diana Bilirubin [Mass/Vol] 0.6 mg/dL Normal 0.2-1.0 [facility] Comment on above: Performed By: #### L IPID, TSH, CMP, T7 #### [facility] [address] [place] [address] Dr. Liang Diana Calcium [Mass/Vol] 9.2 mg/dL Normal 8.5-10.1 [facility] Comment on above: Performed By: #### L IPID, TSH, CMP, T7 #### [facility] [address] [address] [address] Liang Diana Chloride [Moles/Vol] 104 mmol/L Normal 98-107 [facility] Comment on above: Performed By: #### L IPID, TSH, CMP, T7 #### [facility] [address] [address] [address] Liang Diana CO2 [Moles/Vol] 29.5 mmol/L Normal 21.0-32.0 [facility] Comment on above: Performed By: #### L IPID, TSH, CMP, T7 #### [facility] [address] [place] [address] Dr. Liang Diana Creatinine [Mass/Vol] 0.68 mg/dL Normal 0.55-1.02 [facility] Comment on above: Performed By: #### L IPID, TSH, CMP, T7 #### [facility] [address] [address] [address] Liang Diana EGFR-AF CROATIAN >60 Normal >=60 [facility] Comment on above: Performed By: #### L IPID, TSH, CMP, T7 #### [facility] [address] [address] [address] Liang Diana EGFR-NON AF CROATIAN >60 Normal >=60 [facility] Comment on above: Performed By: #### L IPID, TSH, CMP, T7 #### [facility] [address] [address] [address] Liang Diana Globulin (S) [Mass/Vol] 3.3 g/dL Normal [facility] Comment on above: Performed By: #### L IPID, TSH, CMP, T7 #### [facility] [address] [address] [address] Liang Diana Glucose [Mass/Vol] 96 mg/dL Normal 74-106 [facility] Comment on above: Performed By: #### L IPID, TSH, CMP, T7 #### [facility] [address] [address] [address] Liang Diana Potassium [Moles/Vol] 4.6 mmol/L Normal 3.5-5.1 [facility] Comment on above: Performed By: #### L IPID, TSH, CMP, T7 #### [facility] [address] [address] [address] Liang Diana Protein [Mass/Vol] 7.3 g/dL Normal 6.4-8.2 [facility] Comment on above: Performed By: #### L IPID, TSH, CMP, T7 #### [facility] [address] [address] [address] Liang Diana Sodium [Moles/Vol] 140 mmol/L Normal 136-145 [facility] Comment on above: Performed By: #### L IPID, TSH, CMP, T7 #### [facility] [address] [address] [address] Liang Diana Urea nitrogen [Mass/Vol] 7.0 mg/dL Normal 7.0-18.0 [facility] Comment on above: Performed By: #### L IPID, TSH, CMP, T7 #### [facility] [address] [address] [address] Liang Diana Urea nitrogen/Creatinine [Mass ratio] 10.3 mg/mg Normal [facility] Comment on above: Performed By: #### L IPID, TSH, CMP, T7 #### [facility] [address] [address] [address] Liang Diana TSHon 05-30-2022 TSH 0.872 uIU/mL Normal 0.358-3.740 [facility] Comment on above: Performed By: #### L IPID, TSH, CMP, T7 #### [facility] [address] [address] [address] Liang Diana XR LSPINE MIN 4 [...] ANDRADE Date: 2021-09-09 11:23 Normal [facility] Encounters Encounter Date Encounter Type Care Provider Facility Start: 06-06-2022 End: 10-18-[address] PANDA DAVIDSON Facility:[facility] Start: 06-02-2022 Encounter for genera l adult medical examination without abnormal findings DR PANDA DAVIDSON [facility] Start: 06-01-2022 End: 06-02-[address] PANDA DAVIDSON Facility:[facility] Start: 05-30-2022 End: 05-31-[address] PANDA DAVIDSON Facility:[facility] Start: 05-30-2022 End: 05-31-2022 Encounter for general adult medical examination without abnormal findings DR PANDA DAVIDSON Facility:[facility] Start: 09-09-2021 End: 09-10-[address] PANDA DAVIDSON Facility:[facility] Payers Date Payer Category Payer Unknown [id number] 2.16.84 [id number] 1965 Unknown [id number] 2.16.84 [id number] 1965 Unknown [id number] 2.16.84 [id number] 1965 Unknown [id number] 2.16.84 [id number] 1959 Medicare [id number] 1959 Unknown [id number] Summary Purpose Family History No Family History Records Found Advance Directives No Advanced Directives Records Found Additional Source Comments INFORMATION SOURCE (unrecogn ized section and content) DATE CREATED AUTHOR 06/22/2022 [facility] FOR RECORDS PERTAINING TO PATIENTS WHO [...] BE BASED ON THE PRIMARY CLINICAL RECORDS. [facility]. provides no warranty or guarantee of the accuracy or completeness of information in this document.
--- NOTE | 2025-04-21 16:20 | ED_ITS ---
HPI - Extremity Problem General Chief complaint: Extremity Problem, Nontraumatic Stated complaint: PAIN IN R SHOULDER Time Seen by Provider: 04/21/25 16:17 Source: patient Mode of arrival: walk-in History of Present Illness HPI Narrative: 59 year old female presents to the ED for right posterior shoulder pain. She woke up with the discomfort 3 days ago. It is worse with movement and palpation. Denies fever, chills, injury, weakness, N/T. She has Zanaflex at home that has not been helping. Tylenol and Motrin have not helped. States she is here for pain control. She is driving today which limits her pain treatment options here. Related Data Previous Rx's ?Medication ?Instructions ?Recorded cephalexin 500 mg capsule 500 mg PO QID 10 days #40 ca ps 10/29/23 hydrocodone 5 mg-acetaminophen 325 1 tab PO Q8H PRN pa in 4 days #12 04/21/25 mg tablet tabs lidocaine 5 % topical patch 1 patch topical DAILY #15 ea 04/21/25 (Lidoderm) prednisone 20 mg tablet 40 mg (2 x 20 mg) PO DAILY 5 days 04/21/25 #10 tabs Allergies Allergy/AdvReac Type Severity Reaction Status Date / Time amoxicillin Allergy Severe Verified 10/29/23 12:58 Review of Systems ROS Constitutional Denies: fever or chills Ears, nose, mouth, and throat Denies: neck pain Cardiovascular Denies: chest pain Respiratory Denies: shortness of breath Musculoskeletal Denies: neck pain Neurological Denies: headache, numbness in extremities or weakness in extremities PFSH PFSH Social History Little interest or pleasure in doing things: not at all Feeling down, depressed, or hopeless: not at all Exam Constitutional Vital Signs, click to edit/add: Last Vital Signs Temp 99.3 F 04/21/25 16:11 Pulse 92 H 04/21/25 16:11 Resp 18 04/21/25 16:11 BP 136/82 04/21/25 16:11 Pulse Ox 97 04/21/25 16:11 O2 Del Method Room Air 04/21/25 16:11 Common normals: no apparent distress and oriented x3 General appearance: cooperative HENMT Common normals: moist oral mucous membranes Eye Common normals: conjunctivae normal and no scleral icterus Neck & C-Spine Common normals: supple Cervical spine: no cervical spine tenderness and no paracervical muscle tenderness Chest Chest: symmetrical chest wall rise Respiratory Common normals: normal respiratory effort and no use of accessory muscles Effort & inspection: able to speak in complete sentences and symmetric chest movement; no stridor and no audible wheezes Cardio Common normals: regular rate Back & Pelvis Thoracic spine/upper back: normal to inspection; no thoracic spinal tenderness Lumbar spine/lower back: normal to inspection; no lumbar spinal tenderness Extremity Common normals: normal capillary refill Other: Tenderness to right posterior shoulder area. No swelling, deformity, erythema, or wounds noted to the area. Full ROM to right shoulder. Neuro Common normals: oriented x3, CN's II-XII intact bilaterally, moves all extremities and no focal motor deficits Speech: speech normal Gait (neuro): normal gait Course Vital Signs Vital signs: Vital Signs Temperature 99.3 F 04/21/25 16:11 Pulse Rate 92 H 04/21/25 16:11 Respiratory Rate 18 04/21/25 16:11 Blood Pressure 136/82 04/21/25 16:11 Pulse Oximetry 97 04/21/25 16:11 Oxygen Delivery Method Room Air 04/21/25 16:11 Temperature 99.3 F 04/21/25 16:11 Pulse Rate 92 H 04/21/25 16:11 Respiratory Rate 18 04/21/25 16:11 Blood Pressure 136/82 04/21/25 16:11 Pulse Oximetry 97 04/21/25 16:11 Oxygen Delivery Method Room Air 04/21/25 16:11 MDM - Extremity (Nontraumatic) MDM Narrative Medical decision making narrative: The patient declined imaging today. OARRS was reviewed. Prescriptions were provided for [place] and prednisone. She reported she has Zanaflex, Tylenol, and Motrin at home. Follow up with pcp for a recheck, further evaluation and treatment. Return to the ED for worsening symptoms. Discharge Plan Discharge Chief Complaint: Extremity Problem, Nontraumatic Clinical Impression: Acute shoulder pain, Muscle spasm Patient Disposition: Home, Self-Care Time of Disposition Decision: 16:23 Condition: Good Mode of Transportation: Private Vehicle Prescriptions / Home Meds: New hydrocodone-acetaminophen 5-325 mg tablet 1 tab PO Q8H PRN (Reason: pain) 4 Days Qty: 12 0RF prednisone 20 mg tablet 40 mg PO DAILY 5 Days Qty: 10 0RF lidocaine [Lidoderm] 5 % adhesive patch,medicated 1 patch topical DAILY Qty: 15 0RF Rx Instructions: leave on most painful area for up to 12 hrs No Action cephalexin 500 mg capsule 500 mg PO QID 10 Days Qty: 40 0RF Print Language: Divehi Instructions: Muscle Spasm (ED), Shoulder Pain (ED) Additional Instructions: Return to the ED for worsening symptoms. Referrals: Darin Gardner MD [Primary Care Provider, Family Practice] - 1 week
== END 2025-04-21 16:31 | disposition home or self-care (01) ==
PROVIDERS: Emergency Provider Emergency Medicine; PCP Family Medicine
DX: M25.511 Pain in right shoulder (principal); M62.838 Other muscle spasm
CPT/HCPCS: 99283

== ENCOUNTER 2025-05-25 09:29 | Emergency (ER) | payer MEDICARE, SELFPAY ==
--- OUTSIDE RECORDS SUMMARY | 2025-05-25 09:36 | XMS_ITS | CCD ---
Author Organization [facility] CliniSyfl Care Team Providers Care Animation Director Name Role Phone LETY, DR MOSQUEDA Consulting [...] (1 source) Amoxicillin Drug Allergy 08-18-2016 [facility] Repository (1 source) Codeine Drug Allergy 02-17-2016 [facility] Repository (1 source) Morphine Drug Allergy 08-18-2016 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 Admission #: [id number] Family : Order #: [id number] CLICK HERE TO VIEW EXAM RADIOLOGY REPORT PROCEDURE: MAMMOGRAM SCREENING 3D BILATERAL CAD COMPARISON: MAMMO ROMA LUIS DIG, 11/04/2010. INDICATIONS: Screening mammography Calculator Name NCI Breast Cancer Risk Assessment Tool 5 Year Breast Cancer Risk 1.10% Lifetime Breast Cancer Risk 7.10% Personal Breast Cancer No Personal Ovarian Cancer No Treatments None Family Cancers Aunt-maternal with breast cancer at age 83. LOCATION: [facility] BREAST COMPOSITION: Scattered areas fibroglandular [...] MD on 06/01/2022 at 09:59 Normal [facility] CBC AUTO DIFFon 05-30-2022 BASO # 0.1 103/ul Normal 0.0-0.1 [facility] Comment on above: Performed By: #### C BC #### [facility] [address] [address] [address] Liang Diana Basophils/100 WBC (Bld) 0.8 % Normal 0.2-2.0 [facility] Comment on above: Performed By: #### C BC #### [facility] [address] [address] [address] Liang Diana EO # 0.3 103/ul Normal 0.0-0.7 [facility] Comment on above: Performed By: #### C BC #### [facility] [address] [address] [address] Liang Diana Eosinophils/100 WBC (Bld) 2.4 % Normal 0.9-7.0 [facility] Comment on above: Performed By: #### C BC #### [facility] [address] [place] [address] Dr. Liang Diana Erythrocyte distribution width (RBC) [Ratio] 13.5 % Normal 11.0-15.0 [facility] Comment on above: Performed By: #### C BC #### [facility] [address] [place] [address] Dr. Liang Diana Hematocrit (Bld) [Volume fraction] 43.1 % Normal 36.0-48.0 [facility] Comment on above: Performed By: #### C BC #### [facility] [address] [place] [address] Dr. Liang Diana Hemoglobin (Bld) [Mass/Vol] 14.3 g/dL Normal 12.0-16.0 [facility] Comment on above: Performed By: #### C BC #### [facility] [address] [place] [address] Dr. Liang Diana IG # 0.14 10e3/ul Critically high 0.00-0.03 [facility] Comment on above: Performed By: #### C BC #### [facility] [address] [place] [address] Dr. Liang Diana IG % 1.2 % Critically high 0.0-0.5 [facility] Comment on above: Performed By: #### C BC #### [facility] [address] [place] [address] Dr. Liang Diana LYMPH # 1.6 103/ul Normal 1.2-3.8 [facility] Comment on above: Performed By: #### C BC #### [facility] [address] [place] [address] Dr. Liang Diana Lymphocytes/100 WBC (Bld) 14.3 % Critically low 20.5-60.0 [facility] Comment on above: Performed By: #### C BC #### [facility] [address] [place] [address] Dr. Liang Diana MANUAL DIFF REQ NO Normal [facility] Comment on above: Performed By: #### C BC #### [facility] [address] [place] [address] Dr. Liang Diana MCH (RBC) [Entitic mass] 32.1 pg Normal 26.7-34.0 [facility] Comment on above: Performed By: #### C BC #### [facility] [address] [place] [address] Dr. Liang Diana MCHC (RBC) [Mass/Vol] 33.2 g/dL Normal 29.9-35.2 [facility] Comment on above: Performed By: #### C BC #### [facility] [address] [address] [address] Liang Diana MCV (RBC) [Entitic vol] 96.6 fL Normal 81.0-99.0 [facility] Comment on above: Performed By: #### C BC #### [facility] [address] [place] [address] Dr. Liang Diana MONO # 1.1 103/ul Critically high 0.3-0.8 [facility] Comment on above: Performed By: #### C BC #### [facility] [address] [place] [address] Dr. Liang Dinaa Monocytes/100 WBC (Bld) 10.1 % Normal 1.7-12.0 [facility] Comment on above: Performed By: #### C BC #### [facility] [address] [place] [address] Dr. Liang Diana NEUT # 8.0 103/ul Critically high 1.4-6.5 [facility] Comment on above: Performed By: #### C BC #### [facility] [address] [place] [address] Dr. Liang Diana Neutrophils/100 WBC (Bld) 71.2 % Normal 43.0-75.0 [facility] Comment on above: Performed By: #### C BC #### [facility] [address] [place] [address] Dr. Liang Diana Platelet mean volume (Bld) [Entitic vol] 9.0 fL Critically low 9.5-13.5 [facility] Comment on above: Performed By: #### C BC #### [facility] [address] [address] [address] Liang Diana PLT 258 103/ul Normal 150-450 [facility] Comment on above: Performed By: #### C BC #### [facility] [address] [place] [address] Dr. Liang Diana RBC 4.46 106/ul Normal 4.20-5.40 [facility] Comment on above: Performed By: #### C BC #### [facility] [address] [place] [address] Dr. Liang Diana WBC 11.3 103/ul Critically high 4.0-11.0 [facility] Comment on above: Performed By: #### C BC #### [facility] [address] [place] [address] Dr. Liang Diana FREE THYROXINE INDEX T7on FTI 4.48 Normal 1.30-4.50 [facility] Comment on above: Performed By: #### L IPID, TSH, CMP, T7 #### [facility] [address] [place] [address] Dr. Liang Diana T3U 37.0 % Normal 30.0-39.0 [facility] Comment on above: Performed By: #### L IPID, TSH, CMP, T7 #### [facility] [address] [place] [address] Dr. Liang Diana T4 [Mass/Vol] 12.10 ug/dL Normal 4.80-13.90 [facility] Comment on above: Performed By: #### L IPID, TSH, CMP, T7 #### [facility] [address] [place] [address] Dr. Liang Diana GLYCOHEMOGLOBIN A1Con 2021 ADA RECOMMENDATION SEE BELOW Normal [facility] Comment on above: Result Comment: ADA RECOMMENDED LIMIT 4.0 - 6.0 ADA THERAPEUTIC TARGET < 7.0 ACTION SUGGESTED > 7.0 Performed By: #### A 1C #### [facility] [address] [place] [address] Dr. Liang Diana Glucose [Mass/Vol] 108 mg/dL Normal [facility] Comment on above: Performed By: #### A 1C #### [facility] [address] [address] [address] Liang Diana HbA1c (Bld) [Mass fraction] 5.4 % Normal 4.5-6.2 [facility] Comment on above: Performed By: #### A 1C #### [facility] [address] [address] [address] Liang Diana LIPID PROFILEon 05-30-2022 CHOL-HDL RATIO NORM SEE BELOW Normal [facility] Comment on above: Result Comment: 3.3 - 4.4 LOW RISK 4.4 - 7.1 AVERAGE RISK 7.1 - 11.0 MODERATE RISK >11.0 HIGH RISK Performed By: #### L IPID, TSH, CMP, T7 #### [facility] [address] [address] [address] Liang Diana Cholesterol [Mass/Vol] 219 mg/dL Critically high <=200 [facility] Comment on above: Performed By: #### L IPID, TSH, CMP, T7 #### [facility] [address] [address] [address] Liang Diana Cholesterol in HDL [Mass/Vol] 69 mg/dL Critically high 40-60 [facility] Comment on above: Performed By: #### L IPID, TSH, CMP, T7 #### [facility] [address] [address] [address] Liang iDana Cholesterol in LDL [Mass/Vol] 134.4 mg/dL Normal [facility] Comment on above: Performed By: #### L IPID, TSH, CMP, T7 #### [facility] [address] [address] [address] Liang Daina Cholesterol.total/Cho lesterol in HDL [Mass ratio] 3.2 {ratio} Normal [facility] Comment on above: Performed By: #### L IPID, TSH, CMP, T7 #### [facility] [address] [address] [address] Liang Diana HDL NORMAL > or = 60 mg/dl - LOW CARDIOVASCULAR RISK <40 mg/dl - HIGH CARDIOVASCULAR RISK Normal [facility] Comment on above: Performed By: #### L IPID, TSH, CMP, T7 #### [facility] [address] [address] [address] Liang Diana LDL CALC NORMAL SEE BELOW Normal [facility] Comment on above: Result Comment: <100 mg/dl OPTIMAL 100 - 129 mg/dl NEAR OR ABOVE OPTIMAL 130 - 159 mg/dl BORDERLINE HIGH 160 - 189 mg/dl HIGH >190 mg/dl VERY HIGH Performed By: #### L IPID, TSH, CMP, T7 #### [facility] [address] [address] [address] Liang Diana Triglyceride [Mass/Vol] 78 mg/dL Normal <=150 [facility] Comment on above: Performed By: #### L IPID, TSH, CMP, T7 #### [facility] [address] [address] [address] Liang Diana VLDL CALC 15.6 mg/dL Normal [facility] Comment on above: Performed By: #### L IPID, TSH, CMP, T7 #### [facility] [address] [address] [address] Liang Diana PROF 14(COMP METB)on 022 Albumin [Mass/Vol] 4.0 g/dL Normal 3.4-5.0 [facility] Comment on above: Performed By: #### L IPID, TSH, CMP, T7 #### [facility] [address] [address] [address] Liang Diana Albumin/Globulin [Mass ratio] 1.2 {ratio} Normal [facility] Comment on above: Performed By: #### L IPID, TSH, CMP, T7 #### [facility] [address] [address] [address] Liang Diana ALP [Catalytic activity/Vol] 66 U/L Normal 46-116 [facility] Comment on above: Performed By: #### L IPID, TSH, CMP, T7 #### [facility] [address] [address] [address] Liang Diana ALT [Catalytic activity/Vol] 21 U/L Normal 14-59 [facility] Comment on above: Performed By: #### L IPID, TSH, CMP, T7 #### [facility] [address] [address] [address] Liang Diana Anion gap [Moles/Vol] 11.1 mmol/L Normal [facility] Comment on above: Performed By: #### L IPID, TSH, CMP, T7 #### [facility] [address] [address] [address] Liang Diana AST [Catalytic activity/Vol] 18 U/L Normal 15-37 [facility] Comment on above: Performed By: #### L IPID, TSH, CMP, T7 #### [facility] [address] [address] [address] Liang Diana Bilirubin [Mass/Vol] 0.6 mg/dL Normal 0.2-1.0 [facility] Comment on above: Performed By: #### L IPID, TSH, CMP, T7 #### [facility] [address] [place] [address] Dr. Liang Diana Calcium [Mass/Vol] 9.2 mg/dL Normal 8.5-10.1 [facility] Comment on above: Performed By: #### L IPID, TSH, CMP, T7 #### [facility] [address] [address] [address] Liang Diana Chloride [Moles/Vol] 104 mmol/L Normal 98-107 [facility] Comment on above: Performed By: #### L IPID, TSH, CMP, T7 #### [facility] [address] [address] [address] Liang Diana CO2 [Moles/Vol] 29.5 mmol/L Normal 21.0-32.0 [facility] Comment on above: Performed By: #### L IPID, TSH, CMP, T7 #### [facility] [address] [place] [address] Dr. Liang Diana Creatinine [Mass/Vol] 0.68 mg/dL Normal 0.55-1.02 [facility] Comment on above: Performed By: #### L IPID, TSH, CMP, T7 #### [facility] [address] [address] [address] Liang Diana EGFR-AF NIUEAN >60 Normal >=60 [facility] [place] Comment on above: Performed By: #### L IPID, TSH, CMP, T7 #### [facility] [address] [address] [address] Liang Diana EGFR-NON AF NIUEAN >60 Normal >=60 [facility] Comment on above: Performed By: #### L IPID, TSH, CMP, T7 #### [facility] [address] [address] [address] Liang Diana Globulin (S) [Mass/Vol] 3.3 g/dL Normal [facility] Comment on above: Performed By: #### L IPID, TSH, CMP, T7 #### [facility] [address] [address] [address] Liang Diana Glucose [Mass/Vol] 96 mg/dL Normal 74-106 [facility] Comment on above: Performed By: #### L IPID, TSH, CMP, T7 #### [facility] [address] [address] [address] Liang Diana Potassium [Moles/Vol] 4.6 mmol/L Normal 3.5-5.1 [facility] Comment on above: Performed By: #### L IPID, TSH, CMP, T7 #### [facility] [address] [address] [address] iLang Diana Protein [Mass/Vol] 7.3 g/dL Normal 6.4-8.2 [facility] Comment on above: Performed By: #### L IPID, TSH, CMP, T7 #### [facility] [address] [address] [address] Liang Diana Sodium [Moles/Vol] 140 mmol/L Normal 136-145 [facility] Comment on above: Performed By: #### L IPID, TSH, CMP, T7 #### [facility] [address] [address] [address] Liang Diana Urea nitrogen [Mass/Vol] 7.0 mg/dL Normal 7.0-18.0 [facility] Comment on above: Performed By: #### L IPID, TSH, CMP, T7 #### [facility] [address] [address] [address] Liang Diana Urea nitrogen/Creatinine [Mass ratio] 10.3 mg/mg Normal [facility] Comment on above: Performed By: #### L IPID, TSH, CMP, T7 #### [facility] [address] [address] [address] Liang Diana TSHon 05-30-2022 TSH 0.872 uIU/mL Normal 0.358-3.740 [facility] Comment on above: Performed By: #### L IPID, TSH, CMP, T7 #### [facility] [address] [address] [address] Liang Diana XR LSPINE MIN 4 [...] by: GEOFF ANDRADE Date: 2021-09-09 11:23 Normal [facility] Encounters Encounter Date Encounter Type Care Provider Facility Start: 06-06-2022 End: 10-18-[address] PANDA DAVIDSON Facility:[facility] Start: 06-02-2022 Encounter for genera l adult medical examination without abnormal findings DR PANDA DAVIDSON [facility] Start: 06-01-2022 End: 06-02-[address] PANDA DAVIDSON Facility:[facility] Start: 05-30-2022 End: 05-31-[address] PANDA DAVIDSON Facility:[facility] Start: 05-30-2022 End: 05-31-2022 Encounter for general adult medical examination without abnormal findings DR PANDA DAVIDSON Facility:[facility] Start: 09-09-2021 End: 09-10-[address] PANDA DAVIDSON Facility:[facility] Payers Date Payer Category Payer Unknown [id number] [id number] [id number] 1965 Unknown [id number] 2.16.84 [id number] 1965 Unknown [id number] 2.16.84 [id number] 1965 Unknown [id number] 2.16.84 [id number] 1959 Medicare [id number] 1959 Unknown [id number] Summary Purpose Family History No Family History Records Found Advance Directives No Advanced Directives Records Found Additional Source Comments INFORMATION SOURCE (unrecogn ized section and content) DATE CREATED AUTHOR 06/22/2022 [facility] FOR RECORDS PERTAINING TO PATIENTS WHO [...] BE BASED ON THE PRIMARY CLINICAL RECORDS. [facility] [employer] [facility]. provides no warranty or guarantee of the accuracy or completeness of information in this document.
[2025-05-25 10:00] VITALS: BP 181/82; PULSE 84; TEMP 36.7; O2SAT 96; BMI 22.8
--- NOTE | 2025-05-25 10:26 | ED_ITS ---
HPI HPI - Fall General Chief Complaint: Fall Stated Complaint: FALL; R ARM PAIN/INJURY Time Seen by Provider: 05/25/25 10:18 Source: patient Mode of arrival: walk-in Limitations: no limitations History of Present Illness HPI Narrative: The patient just tripped and fell forward and I have been having abrasion on the posterior aspect of the right forearm and right hand on the dorsum Patient have no head injury or loss of consciousness Last tetanus has been more than 5 years Related Data Previous Rx's ?Medication ?Instructions ?Recorded cephalexin 500 mg capsule 500 mg PO QID 10 days #40 ca ps 10/29/23 hydrocodone 5 mg-acetaminophen 325 1 tab PO Q8H PRN pa in 4 days #12 04/21/25 mg tablet tabs lidocaine 5 % topical patch 1 patch topical DAILY #15 ea 04/21/25 (Lidoderm) prednisone 20 mg tablet 40 mg (2 x 20 mg) PO DAILY 5 days 04/21/25 #10 tabs bacitracin 500 unit/gram topical 1 applic topical BID #14 grams 05/25/25 ointment Allergies Allergy/AdvReac Type Severity Reaction Status Date / Time amoxicillin Allergy Mild Rash Verified 05/25/25 10:00 Review of Systems ROS Status of ROS 10 or more systems reviewed and unremark able except as noted in history and below PFSH PFSH Social History Little interest or pleasure in doing things: not at all Feeling down, depressed, or hopeless: not at all Exam Narrative Exam Narrative: Nurses notes and vital signs reviewed and patient is not hypoxic. Right upper extremity: There is no tenderness at all on palpation of the bony prominences and the patient only have abrasion on the posterior aspect of the right forearm that is larger and it is mostly secondary to macerated skin that is thin but it is very superficial and not deep and no exposure of the und erlying structures. The skin is paperlike and even cleaning it is causing some disturbance of the abrasion The patient also had another abrasion on the dorsum of the right hand that is measuring almost 1 cm circular; the forearm rectangular in shape abrasions are big measuring 5 and 10 cm General: Well-appearing and in no apparent distress. Skin: Warm, dry, no pallor noted. No rash. Head: Normocephalic, atraumatic. Neck: Supple, non-tender. Eye: Pupils are equal, round and EOMI. No scleral icterus. Ears, Nose, Mouth, and Throat: TM are clear, no nasal mucosal hypertrophy. Oral mucosa is moist, no posterior oropharynx erythema, uvula is mid-line Cardiovascular: Regular Rate and Rhythm without murmur, gallop or rub. Respiratory: No accessory muscle use or respiratory distress. Lungs are clear to auscultation, no wheezing, rales or rhonchi Chest Wall: no tenderness Back: No midline thoracic or lumbar vertebral tenderness. No CVA tenderness GI: Abdomen is soft, non-distended. Normal bowel sounds. No masses appreciated. No tenderness to palpation. No rebound, guarding, or rigidity noted. Neurological: A&O x4. No cranial nerve dysfunction observed. No truncal ataxia. Moves all extremities. Sensation intact. Psychiatric: Cooperative and interactive. Normal mood and affect. Constitutional Vital Signs, click to edit/add: Last Vital Signs Temp 98.0 F 05/25/25 10:00 Pulse 84 05/25/25 10:00 Resp 16 05/25/25 10:00 BP 181/82 H 05/25/25 10:00 Pulse Ox 96 05/25/25 10:00 O2 Del Method Room Air 05/25/25 10:00 Course Vital Signs Vital signs: Vital Signs Temperature 98.0 F 05/25/25 10:00 Pulse Rate 84 05/25/25 10:00 Respiratory Rate 16 05/25/25 10:00 Blood Pressure 181/82 H 05/25/25 10:00 Pulse Oximetry 96 05/25/25 10:00 Oxygen Delivery Method Room Air 05/25/25 10:00 Temperature 98.0 F 05/25/25 10:00 Pulse Rate 84 05/25/25 10:00 Respiratory Rate 16 05/25/25 10:00 Blood Pressure 181/82 H 05/25/25 10:00 Pulse Oximetry 96 05/25/25 10:00 Oxygen Delivery Method Room Air 05/25/25 10:00 MDM - Fall MDM Narrative Medical decision making narrative: No tenderness upon palpation of the bony prominences and the patient abrasions are not deep they are superficial although large Bacitracin applied in addition to tetanus booster after cleaning the wound Instruction to monitor symptoms No need for imaging at the moment because there is no pain or tenderness on palpation The patient is to follow up with primary care physician in next 2-3 days or to return to the emergency department should any of the signs or symptoms worsen or new symptoms develop. The patient agrees with the following Diagnosis and Treatment plan and the patient will be discharged home. Discharge Plan Discharge Chief Complaint: Fall Clinical Impression: Fall, Abrasion, Abrasion of multiple sites of right upper arm Patient Disposition: Home, Self-Care Time of Disposition Decision: 10:28 Condition: Good Prescriptions / Home Meds: New bacitracin 500 unit/gram ointment 1 applic topical BID Qty: 14 0RF No Action hydrocodone-acetaminophen 5-325 mg tablet 1 tab PO Q8H PRN (Reason: pain) 4 Days Qty: 12 0RF prednisone 20 mg tablet 40 mg PO DAILY 5 Days Qty: 10 0RF lidocaine [Lidoderm] 5 % adhesive patch,medicated 1 patch topical DAILY Qty: 15 0RF Rx Instructions: leave on most painful area for up to 12 hrs cephalexin 500 mg capsule 500 mg PO QID 10 Days Qty: 40 0RF Print Language: Kinyarwanda Instructions: Abrasion (ED), Fall Prevention (ED) Referrals: Darin Gardner MD [Primary Care Provider, Family Practice] - 1 week Discharge Date/Time: 05/25/25 10:49
--- NOTE | 2025-05-25 10:32 | PC.NURSE ---
wound cleansed with soap and water, bacitracin applied with non stick dry dressing, pt tolerated well
[2025-05-25] MEDS: DIPHTH,PERTUSS(ACELL),TET VAC 0.5 ML SYRINGE IM (10:36)
[2025-05-25] MEDS: BACITRACIN OINTMENT 28.4 GM TUBE 1 APPLIC TOPICAL (10:36)
== END 2025-05-25 10:49 | disposition home or self-care (01) ==
PROVIDERS: Emergency Provider Emergency Medicine; PCP Family Medicine
DX: S50.811A Abrasion of right forearm, initial encounter (principal); S60.511A Abrasion of right hand, initial encounter; W01.0XXA Fall on same level from slipping, tripping and stumbling without subsequent striking against object, initial encounter
CPT/HCPCS: 90471; 90715; 99284

== ENCOUNTER 2025-06-16 13:52 | Outpatient (OUT) | payer MEDICARE, SELFPAY ==
--- OUTSIDE RECORDS SUMMARY | 2024-12-09 06:15 | XMS_ITS ---
Author Organization [facility] [place] Address [address] [place] [address] Care Team Providers Care Booking Officer Name Role Phone Rigoberto Gardner Primary Care Provider REASON FOR VISIT BACK PAIN Encounters Encounter Location Date Provider Diagnosis [address] [address] 12/09/2024 Rigoberto Gardner Plan Of Treatment No Information Progress Notes * Heather ADAME LDOB: 5 (60 yo F)Acc No.[id number]:12/09/2024 UNLOCKED PROGRESS NOTE Progress Note Patient: Heather FISHER :?Darin Gardner (TTC), MDDOB:1965???Age: 59 Y???Sex:FemaleDate:12/09/2024Phone:[phone]:[address] [place], [place] [id number] Subjective: * Chief Complaints: * 1 . BACK PAIN. * Medical History: Objective: * Vitals: Assessment: Plan: * Treatment: * * Electronic signature of iRgoberto Gardner MD, [phone] on 06/16/2025 at 01:58 PM EDT Sign off status: PendingVisit Status:?N/S N/C (No Show/No Charge) * Provider: Hector Gardner MD (TTC) Date: 0 12/09/2024 Generated for Printing/Faxing/eTransmitting on:?06/16/2025 01:58 PM EDT
--- OUTSIDE RECORDS SUMMARY | 2025-06-16 13:59 | XMS_ITS | Patient Health Record ---
Author Organization [facility] in [place] Address [address] [place] [address] Care Team Providers Care Dental Chairside Assistant Name Role Phone Rigoberto Gardner Primary Care Provider Allergies Allergen (clinical drug ingredient) Drug/Non Drug Allergy documented on EMR Reaction Allergy Type Onset Date Status ciprofloxacin Cipro diarrhea, vomiting Drug Allergy Active Results Component Value Reference Range Notes FREE T4 Reviewed date:07/10/2024 12:32:08 PM Interpretation: Performing Lab: Notes/Report: [facility] , Free T4 1.11 0.76-1.46 ng/dL Performing Lab:see noteML - [facility] Reviewed date:07/10/2024 12:32:08 PM Interpretation: Performing Lab: Notes/Report: [facility] ,Thyroid Stimulating Hormone0.7580.358-3.740 uIU/mLPerforming Lab:see noteML - [facility] Reason For Referral No Information Medications Medication SIG (Take, Route, Frequency, Duration) Notes Start Date End Date Status Albuterol Sulfate HFA 108 (9 0 Base) MCG/ACT INHALE 2 PUFFS BY MOUTH 4 TIMES DAILY.; Duration: 25 ActivetiZANidine HCl 4 MGTAKE 1 TABLET BY MOUTH IN THE MORNING AND 2 TABLETS AT BEDTIME; Duration: 90ActiveNabumetone 500 MGTAKE 2 TABLETS BY MOUTH TWICE A DAY; Duration: 30ActiveCytomel 5 MCG2 tablet on an empty stomach Orally Once Daily; Duration: 30 days06/10/2024ctiveTriamcinolone Acetonide 0.1 %APPLY TO AFFECTED AREA TWICE A DAY; Duration: 60Active Immunizations Vaccine Route Administration Date Status Comme nts Flu, Flucelvax (2872-7328) (76412) 6 mos +, single-dose syringe IM Intramuscular 05/19/2023 Administered Social History Tobacco Use: Social History Observation Description Date Details (start date - stop date) Current Smoker NA - NA Tobacco Use/Smoking Question Answer Notes Patient is a current every day smoker AUDIT-C (Standard) Question Answer Notes Did you have a drink containing alcohol in the p ast year? 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) ActiveconfirmedProblemLumbosacral spondylosis without myelopathy (39032356) Spondylosis without myelopathy or radiculopathy, lumbar region (M47.816)Active confirmedProblemDisorder of sacrum (55772594)Other specified dorsopathies, lumbar region (M53.86)ActiveconfirmedProblemSpasm of back muscles (270422015) Muscle spasm of back (M62.830)ActiveconfirmedProblemChronic obstructive pulmonary disease (60936161)Chronic obstructive pulmonary disease (J44.9)Active confirmedProblemHypertension (18316937)Hypertension (I10)ActiveconfirmedProblem Cigarette smoker (07483259)Cigarette smoker (F17.210)ActiveconfirmedProblem Asthma (039548891)Asthma (J45.909)ActiveconfirmedProblemCarpal tunnel syndrome (98364536)Carpal tunnel syndrome (G56.00)ActiveconfirmedProblemNeck pain (17959372)Neck pain (M54.2)ActiveconfirmedProblemEczema (27867159)Eczema (L30.9) ActiveconfirmedProblemHip pain (91702275)Hip pain (M25.559)Activeconfirmed ProblemLumbar radiculopathy (407058937)Lumbar radiculopathy (M54.16)Active confirmedProblemWell adult (646349426)Well adult (Z00.00)ActiveconfirmedProblem Cellulitis (585722396)Cellulitis (L03.90)ActiveconfirmedProblemPain of left hand (239784902196323)Left hand pain (M79.642)ActiveconfirmedProblemCramp in lower limb (739585531)Leg cramps (R25.2)ActiveconfirmedProblemAcute sinusitis (62490230)Acute sinus infection (J01.90)ActiveconfirmedProblemLumbar spondylosis (034465403)Lumbar spondylosis (M47.816)ActiveconfirmedProblemOverweight (917836048)Over weight (E66.3)ActiveconfirmedProblemSeasonal allergic rhinitis (164998666)Allergic rhinitis, seasonal (J30.2)ActiveconfirmedProblemAsthma without status asthmaticus (46417772)AB (asthmatic bronchitis) (J45.909)Active confirmedProblemLocalized, primary osteoarthritis of the pelvic region and thigh (557804007)Osteoarthritis of hips, 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)ActiveconfirmedProblem Disorder of sacrum (88351960)Low back derangement syndrome (M53.86)Active confirmed Vital Signs Blood pressure diastolic 90 mm Hg 06/16/2025 Ovrndm17 in06/16/2025lood pressure hqarnhfw792 mm Hg06/16/20250130Ffypyo028.8 lbs 06/16/2025BMI25.54 kg/m206/16/2025 Encounters Encounter Location Date Provider Diagnosis [facility] [address] [place] [address] 06/16/2025 Rigoberto Hoy Low back derangement syndrome M53.86 [facility] [address] [place] [address] 06/25/2024 Rigoberto Hoy Muscle spasm of back M62.830 and Lumbar spondylosis M47.816 [facility] [address] [facility] [place] [address] 08/27/2024 Rigoberto Hoy Muscle spasm of back M62.830 [facility] [address] [facility] [place] [address] 10/14/2024 Rigoberto Hoy Lumbar spondylosis M47.816 [facility] [address] [facility] [place] [address] 12/11/2024 Rigoberto Hoy Muscle spasm of back M62.830 [facility] [address] [facility] [place] [address] 01/28/2025 Rigoberto Hoy Muscle spasm of back M62.830 [facility] [address] [facility] [place] [place] [address] 03/13/2025 Rigoberto Hoy Muscle spasm of back M62.830 ; Asthma J45.909 and Allergic rhinitis, seasonal J30.2 [place] [address] [facility] [place] [address] 04/29/2025 Rigoberto Hoy Muscle spasm of back M62.830 ; Hypertension I10 ; Lumbar spondylosis M47.816 and Well adult Z00.00 [facility] [address] [facility] [place] [place] [address] 07/10/2024 Rigoberto Hoy [place] [address] [facility] [place] [address] 09/06/2024Doug HoyMuscle spasm of back M62.830 Assessments Encounter Date Diagnosis (ICD Code) Assessment Notes Treatment Notes Treatment Clinical Notes Section Notes 06/25/2024 Muscle spasm of back (ICD-10 - M 62.830) 06/25/2024Lumbar spondylosis (ICD-10 - M47.816)08/27/2024Muscle spasm of back (ICD-10 - M62.830)10/14/2024Lumbar spondylosis (ICD-10 - M47.816)12/11/2024 Muscle spasm of back (ICD-10 - M62.830)injections today01/28/2025Muscle spasm of back (ICD-10 - M62.830)03/13/2025Muscle spasm of back (ICD-10 - M62.830)Toradol, norflex, lower dose acxakncbxjmnvcrdkv34/24/2025sthma (ICD-10 - J45.909)stabel - using in halr a little more04/29/2025Muscle spasm of back (ICD-10 - M62.830) 04/29/2025Hypertension (ICD-10 - I10)06/16/2025Low back derangement syndrome (ICD-10 - M53.86)3 injections today09/06/2024Muscle spasm of back (ICD-10 - M62.830)04/29/2025Lumbar spondylosis (ICD-10 - M47.816)03/13/2025llergic rhinitis, seasonal (ICD-10 - J30.2)acitn up - lower dose fkdlduufcbpvj52/09/2025 Well adult (ICD-10 - Z00.00)06/25/2024OtherRecommended to rest and use a heating pad on the area. Take NSAIDs for pain as tllarq6408/27/2024OtherRecommended to rest and use a heating pad on the area. Take NSAIDs for pain as cowgzy6210/14/2024 OtherRecommended to rest and use a heating pad on the area. Take NSAIDs for pain as zvrblu8312/11/2024OtherRecommended to rest and use a heating pad on the area. Take NSAIDs for pain as nfqmlf0001/28/2025OtherRecommended to rest and use a heating pad on the area. Take NSAIDs for pain as sgaadf1003/13/2025Other Recommended to rest and use a heating pad on the area. Take NSAIDs for pain as geobps7204/29/2025OtherRecommended to rest and use a heating pad on the area. Take NSAIDs for pain as needed Plan Of Treatment Pending Test Test Name Order Date CMP (COMPLETE METABOLIC PANEL) HEMOGLOBIN A1C (GLYCO) 05/08/2024 IRON, TOTAL 05/08/2024 LIPID PANEL (CHOL/TRIG/HDL/LDL) 05/08/20 CBC WITH DIFF 05/08/2024 STOOL OCCULT BLOOD 05/08/2024 THYROID PROFILE WITH TSH 06/08/2024 XR DEXA BONE DENSITY 04/29/2025 XR HAND LT MIN 3V 12/28/2023 XR LSPINE 2_3 VIEWS 07/04/2023 XR LSPINE MIN 4 VIEWS 06/16/2025 THYROID PANEL (T4/TSH/FREE T3) THYROID PANEL (T4/TSH/FREE T3) 4 MM screening mammo BI 05/08/2024 CT CHEST LOW DOSE (LDCT) 05/08/2024 CT CHEST LOW DOSE (LDCT) 03/27/2024 Insurance Providers Payer Name Payer Address Payer Phone Subscriber Number Group Number Insured Name Patient Relationship to Insured Coverage Start Date Coverage End Date [place] [address] [place] [address] [id number] Kaylin Hennessy - patient is the [id number] [address] [place] [id number], BrendaSelf - patient is the insured Medications Administered Medication Instructions Date of Administration Dosage Notes Dexamethasone, 4mg/mL kjJsjttst21/12/3115925 es814Ceuvmfe-7534/20 dv473Dhsujia-35 20 fu263Dxyyhrt-7180/14/202380 el41Vravdog-6411/20 mg120 Kenalog-400 nq060Arsjxpi-2268/21/2024120 ur681Thoiapw-9951 120 if092Xnksbhp-6679/18/202480 ml34Mpimshkhq Zyrjtwyeaxcf01/05/202360 mg60 Ketorolac Qvsxtrboeawi64/12/202360 ce66Pydvautur Fihbvakxymxg46/11/202360 mg60 Ketorolac Ldleznnbwbdf39/29/202360 pf47Qwgduoiaa Uhiytgvgurcp70/14/202360 mg60 Ketorolac Tnpwequlwpuy81/04/972862 ei46Zesjhdriz Jnalsgrnvmbd20/22/202460 mg60 Ketorolac Uscopcaqjbdk08/01/202460 ay35Jgaobxjxb Munpgrhzzhhu89/09/221170 mg60 Ketorolac Wookpxktcghx07/21/784740 mb53Ntlirtuis Uzouwhndsmbi75/07/014215 mg60 Ketorolac Olhkvkufaodk85/18/291318 vr13Hgkdzkbei Iykiooqkxxgm76/05/991167 mg60 Ketorolac Asrvuxeysofc85/07/265449 mgKetorolac Rceaccvgtxzl59/24/923730 mg Ketorolac Zrlwhxxmwssq22/23/202560 mgKetorolac Zthiczqobnoe84/10/303931 mg Ketorolac Toipljfaqcmo75/24/202560 mgKetorolac Qmldqpoawllu74/09/256245 mg Ketorolac Sxqyqyzvlegb82/27/202560 mgOrphenadrine Zupjxoj99/05/372014 mg60 Orphenadrine Fublmuu24 br74Pgcicbsmqmrv Meprzgj31/11/897197 mg60 Orphenadrine Oclkysk27 dy16Ylwswsokxggu Krfvqsg52 mg60 Orphenadrine Guhpmnr97/04/956255 xt84Flslicfqfxvp Dirmltr84/22/535129 mg60 Orphenadrine Rvgekqq77/01/789588 yx10Bcjkjzwpoitn Fpdjckh71/09/823679 mg60 Orphenadrine Jwxgmbc82/21/390607 fy89Jvgglpfzvdxx Jonhvbk22/07/109785 mg60 Orphenadrine Cwmuuuv98/05/997743 jc51Pueoezibgbwo Daqztds70/23/351432 mg Orphenadrine Hznkjcx76 mgOrphenadrine Uiqkvwb04/24/062827 mg Orphenadrine Swpfalq48/09/019620 mgOrphenadrine Npyggbz41/27/427420 mg Triamcinolone 40 mg/ml20 mgTriamcinolone 40 mg/ml580 mg Triamcinolone 40 mg/ml580 mgTriamcinolone 40 mg/ml20 mg Triamcinolone 40 mg/ml mgTriamcinolone 40 mg/ml mg Triamcinolone 40 mg/ml20 mg Medical (General) History Medical History History ICD Code Well adult Z00.00 Hypertension I10 Over weight E66.3 Moran's palsy G51.0 Muscle spasm of back M62.830 Asthma J45.909 AB (asthmatic bronchitis) J45.909 Lumbar spondylosis M47.816 Osteoarthritis of hips, bilateral M16.0 Hip pain M25.559 Allergic rhinitis, seasonal J30.2 Leg cramps R25.2 Chronic obstructive pulmonary disease J4 4.9 Cigarette smoker F17.210 Carpal tunnel syndrome G56.00 Bakers cyst of knee, left M71.22 Surgical History Surgery Date(Month/Year) Lumbar Fusion 09/06 Tubal Ligation Cervical Fusion C6-7Laminectomy L3-4, L4-5Hospitalization History Reason Date(Month/Year) Just for surgeries
--- OUTSIDE RECORDS SUMMARY | 2025-06-16 13:59 | XMS_ITS | Clinical Summary ---
Author Organization [facility] Address [address] [place] [address] Care Team Providers Care Compo Conveyor Operator Name Role Phone Unavailable Primary Care Provider Unavailabl e Social History Tobacco UseTypesPacks/DayYears UsedDateSmoking Tobacco: Never Assessed CommentsUnknownSex and Gender InformationValueDate RecordedSex Assigned at Avdivl7210/22/2024 9:32 AM ESTLegal JexBmecea77/15/2023 7:15 PM EDTGender Identity Wrjaig1010/22/2024 9:32 AM ESTSexual OrientationNot on file Last Filed Vital Signs Vital SignReadingTime TakenCommentsBlood Nyqeuqgk599/7510 12:00 PM EDT Pulse--Temperature--Respiratory Rate--Oxygen Saturation--Inhaled Oxygen Concentration--Vayjig84.4 kg (175 lb)06/11/2018 12:00 PM CVKPqdqal421.6 cm (5' 4 )06/11/2018 12:00 PM EDTBody Mass Index30.041 12:00 PM EDT Plan of Treatment Not on file Insurance * Guarantor: Heather Adame TypeRelation to PatientDate of BirthPhone Billing AddressPersonal/WsipbmVvij1965 [address] [address]
--- NOTE | 2025-06-16 14:05 | XR_ITS ---
The [address] [address] Patient Name: TARAH ADAME MRN: [id number] date: 1965 Sex: F Assigned Patient Location: [facility] Current Patient Location: Accession/Order Number: [id number] Exam Date: 06/16/2025 14:18 Report Date: 06/17/2025 08:22 At the request of: PANDA DAVIDSON MD Procedure: XR lumbar spine min 4V LUMBAR SPINE -4 views: CLINICAL HISTORY: Chronic low back derangement syndrome with pain. Remote back surgery. COMPARISON: 09/09/2021 AP, lateral and both oblique views were obtained. There is osteopenia. Levoscoliotic curvature is seen. There is prior laminectomy and fusion with posterior rods and pedicle screws extending from L3 through L5. The hardware appears intact and unchanged from the prior. No acute compression fractures are noted. There is still anterolisthesis of L3 with respect to the adjacent vertebra. There is loss of the disc spaces from L2-3 down to L4-5. There is endplate sclerosis and irregularity as well as spurring at the L2-3 level. Lower lumbar facet hypertrophy is noted. The SI joints are intact and show mild sclerosis. XR/XR lumbar spine min 4V IMPRESSION: SCOLIOSIS WITH POSTOPERATIVE AND DEGENERATIVE CHANGES, DESCRIBED. Impression dictated by: Mari Estrada M.D. 06/17/2025 8:22 AM Dictation Location: [place] [address] Electronically authenticated by: [id number] Y Date: 06/17/2025 08:22
--- OUTSIDE RECORDS SUMMARY | 2025-06-16 14:11 | XMS_ITS | CCD ---
Author Organization [facility] Care Team Providers Care Welfare Officer Name Role Phone LETY, DR MOSQUEDA Consulting Unavailable HOY, DR MOSQUEDA Primary Care Unavailable HOY, DR MOSQUEDA Admitting Unavailable HOY, DR MOSQUEDA Attending Unavailable WEST, DR CARLO Willson Consulting Unavailable HOY, DR MOSQUEDA Consulting Unavailable HOY, DR MOSQUEDA Primary Care Unavailable HOY, DR MOSQUEDA Admitting Unavailable HOY, DR MOSQUEDA Attending Unavailable ZIEBER, DR GEOFF Bella Consulting Unavailable SOEIY, DR MOSQUEDA Consulting Unavailable OSEIY, DR MOSQUEDA Primary Care Unavailable HOY, DR MOSQUEDA Admitting Unavailable HOY, DR MOSQUEDA Attending Unavailable HOY, DR MOSQUEDA Consulting Unavailable HOY, DR MOSQUEDA Primary Care Unavailable HOY, DR MOSQUEDA Admitting Unavailable HOY, DR MOSQUEDA Attending Unavailable ZIEBER, DR GEOFF Bella Consulting Unavailable Allergies Allergy ClassificationReported Allergen(s)Allergy TypeDate of OnsetReaction(s) Facility (1 source)AmoxicillinDrug Jhnjzoa01-11-2679[facility] Repository (1 source)CodeineDrug Abrcidl14-20-9565U[facility] Repository (1 source)MorphineDrug Ykaascm40-38-5362Kfq [facility] Repository Problems Problem ClassificationProblemDateDocumented DateEpisodic/ChronicDeficiency and other anemia (1 source)Anemia, unspecified; Translations: [ANEMIA UNSPECIFIED]Onset: 48-42-2484XkuefsrxPwvuawve mellitus without complication (1 source)Other abnormal glucose; Translations: [OTHER ABNORMAL GLUCOSE]Onset: 71-74-1828HspybkqeMtsrofluc of lipid metabolism (1 source)Hyperlipidemia, unspecified; Translations: [HYPERLIPIDEMIA UNSPECIFIED]Onset: 08-49-5542UuhbnmuVvwrcss and fatigue (1 source)Other fatigue; Translations: [OTHER FATIGUE]Onset: 53-21-3758Nsqweitx Other aftercare (1 source)Other rodent exterminator (current) drug therapy; Translations: [OTH GROUP HOME CURRENT DRUG THERAPY]Onset: 57-93-0289DccvqacdKdyje screening for suspected conditions (not mental disorders or infectious disease) (4 sources)Encounter for screening mammogram for malignant neoplasm of breast; Translations: [ENC SCR MAMMO MALIG NEOPLASM BREAST]Onset: 09-80-3997Yjtuslcy Residual codes; unclassified (1 source)Family history of malignant neoplasm of breast; Translations: [FAMILY HX MALIG NEOPLASM OF BREAST]Onset: 15-07-0912SqxcmlogImmegqnejal; intervertebral disc disorders; other back problems (4 sources)Spondylosis without myelopathy or radiculopathy, lumbar region; Translations: [SPONDYLS W/O MYELO-/RADICULOP LUMB]Onset: 98-62-3285Otkpjle Substance-related disorders (4 sources)Nicotine dependence, cigarettes, uncomplicated; Translations: [NICOTINE DEPEND CIGARETTES UNCOMP]Onset: 97-66-9234Urzqgov Results Test NameValueInterpretationReference RangeFacilityCT LUNG CANCER SCREENINGon 65-16-9609MO LUNG CANCER SCREENINGEXAMINATION: CT LUNG CANCER SCREENING HISTORY: Tobacco dependence [...] Electronically authenticated by: GEOFF ANDRADE Date: 2022-06-06 22:04[facility] ROMA CADon 43-80-3188ZJ MAMM SCREEN 3D ROMA CAD Patient: TARAH ADAME Exam Date: 06/01/2022 : 1965 Gender:F Ordering : DR PANDA DAVIDSON . Admission #: [id number] Family : Order #: [id number] CLICK HERE TO VIEW EXAM RADIOLOGY REPORT PROCEDURE: MAMMOGRAM SCREENING 3D BILATERAL CAD COMPARISON: MAMMO ROMA DIAG DIG, 11/04/2010. INDICATIONS: Screening mammography Calculator Name NCI Breast Cancer Risk Assessment Tool 5 Year Breast Cancer Risk 1.10% Lifetime Breast Cancer Risk 7.10% Personal Breast Cancer No Personal Ovarian Cancer No Treatments None Family Cancers Aunt-maternal with breast cancer at age 83. LOCATION: [facility] BREAST COMPOSITION: Scattered areas fibroglandular density. [...] by: Carlo Quinn MD on 06/01/2022 at 09:59NormalThMer[address] Health [address] Vincent Medical CenterCB AUTO DIFFon 59-67-3888GTGX #0.1 103/ulNormal0.0-0.1[facility] CenterComment on above:Performed By: #### CBC #### [facility] [address] [place] [address] Dr. Liang Barbosaphils/100 WBC (Bld)0.8 %Normal0.2-2.0[facility] Comment on above:Performed By: #### CBC #### [facility] [address] [place] [address] Dr. Liang Brown #0.3 103/ulNormal0.0-0.7[facility] HospitalComment on above: Performed By: #### CBC #### [facility] [address] [place] [address] Dr. Liang Beardosinophils/100 WBC (Bld)2.4 %Normal0.9-7.0[facility] Comment on above:Performed By: #### CBC #### [facility] [address] [place] [address] Dr. Liang Beardrythrocyte distribution width (RBC) [Ratio]13.5 %Waeaia44.0-15.0 [facility] HospitalComment on above:Performed By: #### CBC #### [facility] [address] [place] [address] Dr. Liang DianaHematocrit (Bld) [Volume fraction]43.1 %Zdwnoz51.0-48.0[facility] HospitalComment on above:Performed By: #### CBC #### [facility] [address] [place] [address] Dr. Liang DianaHemoglobin (Bld) [Mass/Vol]14.3 g/vWHmwqjm69.0-16.0[facility] HospitalComment on above:Performed By: #### CBC #### [facility] [address] [place] [address] Dr. Liang Gong #0.14 10e3/ulCritically high0.00-0.03[facility] Comment on above:Performed By: #### CBC #### [facility] [address] [place] [address] Dr. Liang Gong %1.2 %Critically high0.0-0.5The [facility] HospitalComment on above:Performed By: #### CBC #### [facility] [address] [place] [address] Dr. Liang ParraMPH #1.6 103/ulNormal1.2-3.8The [facility] HospitalComment on above:Performed By: #### CBC #### [facility] [address] [place] [address] Dr. Liang Parramphocytes/100 WBC (Bld)14.3 %Critically low20.5-60.0The [facility] HospitalComment on above:Performed By: #### CBC #### [facility] [address] [place] [address] Dr. Liang Padilla DIFF REQNONormalThe [facility] HospitalComment on above: Performed By: #### CBC #### [facility] [address] [place] [address] Dr. Liang العلي (RBC) [Entitic mass]32.1 ipVgkyti06.7-34.0The [facility] HospitalComment on above:Performed By: #### CBC #### [facility] [address] [place] [address] Dr. Liang العلي (RBC) [Mass/Vol]33.2 g/zPXkavpp39.9-35.2The [facility] HospitalComment on above:Performed By: #### CBC #### [facility] [address] [place] [address] Dr. Liang العلي (RBC) [Entitic vol]96.6 cXNcrapb20.0-99.0[facility] CenterComment on above:Performed By: #### CBC #### [facility] [address] [place] [address] Dr. Liang Hunter #1.1 103/ulCritically high0.3-0.8ThMercy Health St. [facility] Comment on above:Performed By: #### CBC #### [facility] [address] [place] [address] Dr. Liang Hassanocytes/100 WBC (Bld)10.1 %Normal1.7-12.0[facility] Comment on above:Performed By: #### CBC #### [facility] [address] [place] [address] Dr. Liang Carbajal #8.0 103/ulCritically high1.4-6.5ThMercy Health St. [facility] Comment on above:Performed By: #### CBC #### [facility] [address] [place] [address] Dr. Liang Gonzalezutrophils/100 WBC (Bld)71.2 %Knukvk75.0-75.0[facility] CenterComment on above:Performed By: #### CBC #### [facility] [address] [address] [address] Liang Ulloa mean volume (Bld) [Entitic vol]9.0 fLCritically low 9.5-13.5The [facility] HospitalComment on above:Performed By: #### CBC #### [facility] [address] [address] [address] Liang DianaPLT258 103/yhHmaymk065-868Kud [facility] HospitalComment on above: Performed By: #### CBC #### [facility] [address] [address] [address] Liang DianaRBC4.46 106/ulNormal4.20-5.40The [facility] HospitalComment on above:Performed By: #### CBC #### [facility] [address] [address] [address] Liang DianaWBC11.3 103/ulCritically high4.0-11.0The [facility] HospitalComment on above:Performed By: #### CBC #### [facility] [address] [address] [address] Liang DianaFRAVILA THYROXINE INDEX T7on 58-10-2328ZQS2.22Vtllce5.30-4.50The [facility] HospitalComment on above:Performed By: #### LIPID, TSH, CMP, T7 #### [facility] [address] [address] [address] Liang DianaT3U37.0 %Mahhrt34.0-39.0The [facility] HospitalComment on above: Performed By: #### LIPID, TSH, CMP, T7 #### [facility] [address] [address] [address] Liang DianaT4 [Mass/Vol]12.10 ug/dLNormal4.80-13.90[facility] Comment on above:Performed By: #### LIPID, TSH, CMP, T7 #### [facility] [address] [address] [address] Liang DianaGLYCOHEMOGLOBIN A1Con 75-33-7447LSA RECOMMENDATIONSEE BELOWNormal [facility] HospitalComva [facility] center on above:Result Comment: ADA RECOMMENDED LIMIT 4.0 - 6.0 ADA THERAPEUTIC TARGET < 7.0 ACTION SUGGESTED > 7.0Performed By: #### A1C #### [facility] [address] [place] [address] Dr. Liang DianaGlucose [Mass/Vol]108 mg/dLUniversity Hospitals Ahuja Medical Center on above:Performed By: #### A1C #### [facility] [address] [place] [address] Dr. Liang DianaHbA1c (Bld) [Mass fraction]5.4 %Normal4.5-6.2The [facility] on above:Performed By: #### A1C #### [facility] [address] [place] [address] Dr. Liang VergaraID PROFILEon 98-52-4288XWME-HDL RATIO NORMSEE [facility] CenterComva medical center on above:Result Comment: 3.3 - 4.4 LOW RISK 4.4 - 7.1 AVERAGE RISK 7.1 - 11.0 MODERATE RISK >11.0 HIGH RISKPerformed By: #### LIPID, TSH, CMP, T7 #### [facility] [address] [place] [address] Dr. Liang Montanoesterol [Mass/Vol]219 mg/dLCritically high<=200The [facility] on above:Performed By: #### LIPID, TSH, CMP, T7 #### [facility] [address] [place] [address] Dr. Liang Montanoesterol in HDL [Mass/Vol]69 mg/dLCritically vcxi60-47Gjh [facility] on above:Performed By: #### LIPID, TSH, CMP, T7 #### [facility] [address] [place] [address] Dr. Liang Montanoesterol in LDL [Mass/Vol]134.4 mg/dLSt. Mary's Medical CenterComva medical center on above:Performed By: #### LIPID, TSH, CMP, T7 #### [facility] [address] [place] [address] Dr. Yilan ChangCholesterol.total/Cholesterol in HDL [Mass ratio]3.2 {ratio} NormalThe [facility] HospitalComment on above:Performed By: #### LIPID, TSH, CMP, T7 #### [facility] [address] [place] [address] Dr. Liang Leos NORMAL> or = 60 mg/dl - LOW CARDIOVASCULAR RISK <40 mg/dl - HIGH CARDIOVASCULAR RISKSt. Mary's Medical CenterComment on above:Performed By: #### LIPID, TSH, CMP, T7 #### [facility] [address] [address] [address] Liang DianaLDL CALC NORMALSEE BELOWNoUC HealthComment on above:Result Comment: <100 mg/dl OPTIMAL 100 - 129 mg/dl NEAR OR ABOVE OPTIMAL 130 - 159 mg/dl BORDERLINE HIGH 160 - 189 mg/dl HIGH >190 mg/dl VERY HIGH Performed By: #### LIPID, TSH, CMP, T7 #### [facility] [address] [place] [address] Dr. Liang DianaTriglyceride [Mass/Vol]78 mg/dLNormal<=150[facility] Comment on above:Performed By: #### LIPID, TSH, CMP, T7 #### [facility] [address] [place] [address] Dr. Liang DianaVLDL CALC15.6 mg/dLNoUC HealthComment on above: Performed By: #### LIPID, TSH, CMP, T7 #### [facility] [address] [place] [address] Dr. Liang DianaPROHector 14(COMP METB)on 92-79-2908Gxphkbx [Mass/Vol]4.0 g/dLNormal 3.4-5.0[facility] CenterComment on above:Performed By: #### LIPID, TSH, CMP, T7 #### [facility] [address] [place] [address] Dr. Liang DianaAlbumin/Globulin [Mass ratio]1.2 {ratio}NormalThe [facility] HospitalComment on above:Performed By: #### LIPID, TSH, CMP, T7 #### [facility] [address] [address] [address] Liang Martin [Catalytic activity/Vol]66 U/DJxixby66-103Cff [facility] Hospitalment on above:Performed By: #### LIPID, TSH, CMP, T7 #### [facility] [address] [address] [address] Liang Mcdaniel [Catalytic activity/Vol]21 U/AXmjwzh50-63Wry [facility] HospitalComment on above:Performed By: #### LIPID, TSH, CMP, T7 #### [facility] [address] [address] [address] Liang May gap [Moles/Vol]11.1 mmol/LNormalThe [facility] Comment on above:Performed By: #### LIPID, TSH, CMP, T7 #### [facility] [address] [place] [address] Dr. Liang Camp [Catalytic activity/Vol]18 U/VVzxlax89-70Qkb [facility] HospitalComment on above:Performed By: #### LIPID, TSH, CMP, T7 #### [facility] [address] [place] [address] Dr. Liang DianaBilirubin [Mass/Vol]0.6 mg/dLNormal0.2-1.0[facility] Comment on above:Performed By: #### LIPID, TSH, CMP, T7 #### [facility] [address] [address] [address] Liang DianaCalcium [Mass/Vol]9.2 mg/dLNormal8.5-10.1[facility] Comment on above:Performed By: #### LIPID, TSH, CMP, T7 #### [facility] [address] [address] [address] Liang DianaChloride [Moles/Vol]104 mmol/MAddprb65-212Cof [facility] Comment on above:Performed By: #### LIPID, TSH, CMP, T7 #### [facility] [address] [address] [address] Liang DianaCO2 [Moles/Vol]29.5 mmol/QQodkwm02.0-32.0[facility] Comment on above:Performed By: #### LIPID, TSH, CMP, T7 #### [facility] [address] [place] [address] Dr. Liang DianaCreatinine [Mass/Vol]0.68 mg/dLNormal0.55-1.02The [facility] HospitalComment on above:Performed By: #### LIPID, TSH, CMP, T7 #### [facility] [address] [place] [address] Dr. Liang BeardGFR-AF PITCAIRN ISLANDER>60Normal>=60The [facility] HospitalComment on above:Performed By: #### LIPID, TSH, CMP, T7 #### [facility] [address] [place] [address] Dr. Liang Nolan-NON AF PITCAIRN ISLANDER>60Normal>=60The [facility] HospitalComment on above:Performed By: #### LIPID, TSH, CMP, T7 #### [facility] [address] [place] [address] Dr. Liang DianaGlobulin (S) [Mass/Vol]3.3 g/dLNormalThe [facility] HospitalComment on above:Performed By: #### LIPID, TSH, CMP, T7 #### [facility] [address] [place] [address] Dr. Liang DianaGlucose [Mass/Vol]96 mg/aYRzmezz90-567TtgMercy Health Springfield Regional Medical Center Comment on above:Performed By: #### LIPID, TSH, CMP, T7 #### [facility] [address] [place] [address] Dr. Liang DianaPotassium [Moles/Vol]4.6 mmol/LNormal3.5-5.1[facility] Comment on above:Performed By: #### LIPID, TSH, CMP, T7 #### [facility] [address] [place] [address] Dr. Liang DianaProtein [Mass/Vol]7.3 g/dLNormal6.4-8.2[facility] Comment on above:Performed By: #### LIPID, TSH, CMP, T7 #### [facility] [address] [place], [place] [address] Dr. Liang DianaSodium [Moles/Vol]140 mmol/KIjello556-763Lwn [facility] Comment on above:Performed By: #### LIPID, TSH, CMP, T7 #### [facility] [address] [place], [place] [address] Dr. Liang Garcia nitrogen [Mass/Vol]7.0 mg/dLNormal7.0-18.0The [facility] HospitalComment on above:Performed By: #### LIPID, TSH, CMP, T7 #### [facility] [address] [place], [place] [address] Dr. Liang Garcia nitrogen/Creatinine [Mass ratio]10.3 mg/mgNormalThe [facility] HospitalComment on above:Performed By: #### LIPID, TSH, CMP, T7 #### [facility] [address] [address] [address] Liang Dick 90-15-8601ZVC2.872 uIU/mLNormal0.358-3.740The [facility] HospitalComment on above:Performed By: #### LIPID, TSH, CMP, T7 #### [facility] [address] [address] [address] Liang DianaXR LSPINE MIN 4 VIEWSon 74-39-4748ZK LSPINE MIN 4 VIEWS EXAMINATION: XR LSPINE [...] Electronically authenticated by: GEOFF ANDRADE Date: 2021-09-09 11:23[facility] Encounters Encounter DateEncounter TypeCare ProviderFacilityStart: 06-06-2022 End: 26-56-1971emtsxygnscCE PANDA HOYFacility:W3Cqxic: 45-02-8972Ufdcsopsa for general adult medical examination without abnormal findingsDR [facility] Hospitaltart: 06-01-2022 End: 16-59-2037wrodymtjxxKZ PANDA HOYFacility:O9Qpnaz: 05-30-2022 End: 59-93-1716xybyhrxrslUD PANDA HOYFacility:Q1Hebgg: 05-30-2022 End: 79-11-2467Yzuolwzok for general adult medical examination without abnormal findingsDR PANDA HOYFacility:D8Zwpbf: 09-09-2021 End: 67-88-9897hkgeurytkcPX PANDA HOYFacility:H1 Payers DatePayer CategoryPayerPolicy [id number] [id number] [id number] [id number] 1960Unknown [id number] Summary Purpose Family History No Family History Records Found Advance Directives No Advanced Directives Records Found Additional Source Comments INFORMATION SOURCE (unrecogn ized section and content) DATE CREATED AUTHOR 06/22/2022 [facility] FOR RECORDS PERTAINING TO PATIENTS WHO [...] BE BASED ON THE PRIMARY CLINICAL RECORDS. [facility] [employer] [facility]. provides no warranty or guarantee of the accuracy or completeness of information in this document.
== END 2025-06-16 13:53 | disposition home or self-care (01) ==
LOC: RAD 13:55
PROVIDERS: PCP Family Medicine; Visit Provider Family Medicine
DX: M53.86 Other specified dorsopathies, lumbar region (principal); M41.86 Other forms of scoliosis, lumbar region; M51.369 Other intervertebral disc degeneration, lumbar region without mention of lumbar back pain or lower extremity pain
CPT/HCPCS: 72110